=== PATIENT | male | born 1950 | race Caucasian/White ===

== ENCOUNTER 2016-04-09 08:00 | Outpatient (CLI) | payer MEDICARE, BC ==
--- NOTE | 2016-04-07 13:50 | HP ---
PATIENT: LEWIS SIMS MEDICAL RECORD: [id number] ACCOUNT: [id number] LOCATION:[facility] : 48 ADMISSION DATE: 04/10/16 HISTORY AND PHYSICAL EXAMINATION Patient NameLEWIS SIMS (65yo, M) ID# [id number]. Date/Time03/21/2016 09:[id number]//1950[facility] Dept.[facility] ClinicProviAtrium Health Navicent BaldwinDIEGO ESPARZA MDInsuranceMed Primary: [place] ([place]) Insurance # : [id number] Referring Provider Name : YOSELIN COFFEY Employer Name : UNKNOWN Med Secondary: [place] - [place] Insurance # : [id number] Referring Provider Name : YOSELIN COFFEY Employer Name : UNKNOWN Prescription: CMX - Member is eligible. Chief Complaint Followup: Abdominal aortic aneurysm without rupture referral from Dr Arnoldo Coffey (Trisha) for eval of AAA Patient's Care Team Referring Provider (): YOSELIN COFFEY: [address] [place] [address], [facility], [place] [id number], , Vitals BP:122/80 sitting R arm 03/21/2016 10:04 am 126/70 sitting L arm 03/21/2016 10:06 amHR:68,reg 03/21/2016 10:06 amHt:6 ft 1 in 03/21/2016 10:06 amWt:178 lbs 03/21/2016 10:06 amBMI:23.5 03/21/2016 10:06 amAllergies Reviewed Allergies NKDAMedications Reviewed Medications BD Insulin Syringe Ult-Fine II 1 mL 31 gauge x 5/16"12/19/15 filledCaremarkbuPROPion HCl SR 150 mg tablet,sustained-omljbuy42/08/16 filledCaremarkHumaLOG KwikPen 100 unit/mL yfphhvqdmzyt92/25/16 filledCaremarkJanumet 50 mg-1,000 mg tarmgd66/28/16 filledCaremarkLantus 100 unit/mL subcutaneous kijvwvmg68/21/16 filledCaremarklosartan 100 mg-hydrochlorothiazide 12.5 mg /02/17 filledCaremarkProblems Reviewed Problems Abdominal aortic aneurysm without rupture - Onset: 03/20/2016 Family History Discussed Family History Father- Malignant neoplastic diseaseMother- Malignant tumor of breast - Alzheimer's disease - Diabetes mellitusBrother- Diabetes mellitusSocial History Discussed Social History Cardiology Smoking Status: Former smoker (Notes: using "E-cigarettes") High blood pressure: Y Diabetes: Y Marital status: Surgical History Reviewed Surgical History Other - penile prosthesis HISTORY AND PHYSICAL [id number] BETHANYLEWIS Heart revascularize (tmr) Heart revascularize (tmr) Spinal disk surgery add-on Tonsillectomy Past Medical History Discussed Past Medical History Chest Pain: Y Circulation Problems: Y Diabetes: Y GERD: Y Heart Disease: Y High Blood Pressure: Y Documents for Discussion N/A Screening None recorded. HPI Peripheral Vascular Disease Reported by patient. Location: abdomen Severity: not limiting Associated Symptoms: no weakness; no numbness; no paresthesias; no skin discoloration; no fever complex abdominal aortic aneurysm and severe atherosclerosis ROS ROS as noted in the HPI Physical Exam Patient is a 65-year-old male. Constitutional: General Appearance healthy-appearing and thin. Level of Distress NAD. Ambulation ambulating normally. Cardiovascular: Apical Impulse not displaced or no thrill. Heart Auscultation normal s1 and s2; no murmurs, rubs, or gallops; and RRR. Arterial Pulses no abdominal aorta bruits, femor al bruits, or popliteal bruits and 2+ bilateral, carotid 2+ bilateral, femoral 2+ bilateral, popliteal 2+ bilateral, and dorsalis pedis 2+ bilateral. Edema no edema or varicosities. Lungs: Repiratory Effort no dyspnea. Percussion no hyperresonance or dull ness or flatness. Auscultation no wheezing, rhonchi, or rales / crackles and breathing sounds normal, good air movement, and CTA except as noted. Abdomen: Bowl Sounds normal. Inspection and Palpation no tenderness, guarding, masses, or rebound tenderness and soft and non-distended; palpable abdominal aortic aneurysm Nontender. Liver non-tender and no hepatomegaly. Spleen non-tender and no splenomegaly. Hernia none palpable. Musculoskeletal System: Gait And Stance normal gait and stance. Digits and Nails normal nails and no cyanosis. Neurologic: Cranial Nerves grossly intact. Reflexes DTRs 2+ bilaterally throughout. Sensation grossly intact. Lymph Nodes: Lymph Nodes no cervical LAD, supraclavicular LAD, axillary LAD, or HISTORY AND PHYSICAL [id number] LEWIS SIMS inguinal LAD. Eyes: Lids and Conjunctivae no discharge or pallor and non-injected. Pupils PERRLA. Cornea grossly intact. EOM EOMI. Lens clear. Sclerae non-icteric. Neck: Neck no masses, enlarged lymph nodes, or carotid bruits and supple and trachea midline. Thyroid no enlargement or nodules and non-tender. Skin: Inspection and Palpation no rash, lesions, ulcers, jaundice, or abnormal nevi. 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 Abdominal aortic aneurysm without rupture I71.4: Abdominal aortic aneurysm, without rupture ABDOMINAL AORTIC ANEURYSM: CARE INSTRUCTIONS Discussion Notes enlarging abdominal aortic aneurysm with aortic dissection. I think that he would benefit from endovascular stent repair as well as repair of his iliac arteries bilaterally. I have discussed his disease process with him in detail as well as the alternative methods of treatment. We discussed endovascular stent repair and open aneurysm repair including t he expected benefits and risk which included bleeding, infection, stroke, and . He understands all of the above and wished to proceed with planned procedure We will send his CD to Sanghvi for measurements Return to Office to see Jose Miguel Esparza MD at [facility] on or around 03/28/2016 JOSE MIGUEL ESPARZA MD at 1350 CC: [id number] DICTATION DATE: 03/21/16 0945 OFFICE ADMINISTRATOR: DM 04/05/16 0952 PRE IN [facility] [address] [place] [address]
[2016-04-09] MEDS ORDERED: JANUMET 50-1,001 TAB PO (09:57)
[2016-04-09] MEDS ORDERED: NIACIN500 MG PO (09:58)
[2016-04-09] MEDS ORDERED: WELLBUTRIN SR150 MG PO (09:58)
[2016-04-09] MEDS ORDERED: HYZAAR 100-12.51 TAB PO (09:59)
[2016-04-09] MEDS ORDERED: ASPIRIN EC81 M1 PO (09:59)
[2016-04-09] MEDS ORDERED: MULTI-DAY VITAM1 TAB PO (10:00)
[2016-04-09] MEDS ORDERED: FERROUS SULFAT325 MG PO (10:00)
[2016-04-09] MEDS ORDERED: HUMULIN N100 U/ML SC (10:01)
[2016-04-09 12:00] VITALS: BMI 22.2
[2016-04-09] MEDS ORDERED: PLAVIX75 MG PO (13:43)
== END 2016-04-09 23:59 | disposition home or self-care (01) ==
LOC: D.PAN 08:00 → EDSTATUS 04-10 07:30 → D.SDCHOLD 04-10 07:30
DX: I71.4 Abdominal aortic aneurysm, without rupture (principal); Z01.810 Encounter for preprocedural cardiovascular examination; Z01.811 Encounter for preprocedural respiratory examination; Z01.812 Encounter for preprocedural laboratory examination; Z53.9 Procedure and treatment not carried out, unspecified reason

== ENCOUNTER 2016-04-09 11:13 | Outpatient (CLI) | payer MEDICARE, BC ==
[~2016-04-09] VITALS: Ht 185.4 cm; Wt 76.4 kg
--- NOTE | ~2016-04-09 | HEMODYNAMI ---
PATIENT:LEWIS SIMS MEDICAL RECORD: [id number] : 48 LOCATION:[facility] ADMISSION DATE: 04/09/16 Generatedon:04/09/201613:11 Patient name: LEWIS SIMS Patient #: [id number] SSN: : 1950 Date of study: 04/09/2016 Page: Of Hemodynamic Procedure Report Patient Data Patient Demographics Procedure consent was obtained First Name: LEWIS Gender: Male Last Name: BETHANY : 1950 [facility] Initial: MANDI Age: 65 year(s) Patient #: [id number] Race: Unknown Additional ID: [id number] Contact details [address]: [address] [place] [address] DRIVE State: [place] City: [place] Zip code: [address] Admission Admission Data Admission Date: 04/09/2016 Admission Time: 11:13 Admit Source: Other Lab Results Lab Result Date: 04/09/2016 Lab Result Time: 11:50 Biochemistry Name Units Result Min Max Creatinine mg/dl 0.8 --(-*--)-- 0.6 1.3 CBC Name Units Result Min Max Hemoglobin g/dl 14.4 --(*---)-- 13.5 17.5 Procedure Procedure Types Cath Procedure Diagnostic Procedure [facility] w/Coronaries PCI Procedure Coronary Stent Initial Procedure Description Procedure Date Procedure Date: 04/09/2016 Procedure Start Time: 12:52 Procedure End Time: 13:09 Procedure Staff Name Function Seth Wright MD Performing Physician Ludy Brunner RN Nurse Jimmie Barrera RT Monitor Rajiv Crane RT Surface Logging Systems Logger Tomas Sim RT Scrub Procedure Data Cath Procedure Fluoroscopy Diagnostic fluoroscopy Total fluoroscopy Time: 4.3 time: 4.3 min min Diagnostic fluoroscopy Total fluoroscopy dose: 541 dose: 541 mGy mGy Contrast Material Contrast Material Type Amount (ml) Isovue 300 112 Entry Location Entry Primary Successful Side Size Upsize Upsize Entry Closure Lucero ccessful Closure Location (Fr) 1 (Fr) 2 (Fr) Remarks Device Remarks Radial Right 6 Fr Mechanical artery Short Compression Estimated blood loss: 10 ml Diagnostic catheters Device Type Used For End Catheter Placement Terumo 5Fr [place] 110cm Procedure catheter Procedure Complications No complications Procedure Medications Medication Administration Route Dosage Oxygen NC 2 l/min Lidocaine 2% added to field 20 Heparin Flush Bag added to field 2 bags (1000units/500ml NS) 0.9% NaCl I.V. 100 ml/hr Versed I.V. 1 mg Fentanyl I.V. 50 mcg Versed I.V. 1 mg Fentanyl I.V. 50 mcg Versed I.V. 1 mg Radial Cocktail I.A. 1 syringe (Verapomil 2mg/Nitro 400mcg/Heparin 1500units) Heparin Bolus I.V. 4000 units Integrilin (Bolus I.V. 6.8 ml 2mg/ml) Plavix P.O. 600 mg Hemodynamics Rest HGB: 14.4 (g/dl) Heart Rate: 25 (bpm) Snapshots Pre Cath Intra NCS Post Cath Vital Signs Time Heart Resp SPO2 etCO2 SB3cesx NIBP (mmHg) Rhythm Pain Sedation Rate (ipm) (%) (mmHg) (mmHg) Status Level (bpm) 12:41:46 69 17 96 0 0 144/88(126) NSR 0 (11) 10(A) , No pain 12:46:00 71 18 96 0 0 118/82(99) NSR 0 (11) 10(A) , No pain 12:50:03 66 16 96 0 0 134/87(111) NSR 0 (11) 9(A) , No pain 12:54:13 66 17 97 0 0 128/83(105) NSR 0 (11) 9(A) , No pain 12:58:23 84 16 94 0 0 115/76(92) NSR 0 (11) 9(A) , No pain 13:02:29 79 18 94 0 0 120/76(114) NSR 0 (11) 9(A) , No pain 13:06:37 65 17 96 0 0 140/82(126) NSR 0 (11) 10(A) , No pain Medications Time Medication Route Dose Verified Delivered Reason Note s Effectiveness by by 12:41:36 Oxygen NC 2 l/min Seth Boston used for Adriana Brunner [employer] 12:41:42 Lidocaine 2% added 20ml Seth Ann for local to vial Adriana Wright MD anesthetic field 12:41:50 Heparin Flush added 2 bags Seth Ann used for Bag to Adriana Wright MD procedure (1000units/500ml field NS) 12:41:58 0.9% NaCl I.V. 100 Seth Boston Per physician ml/hr Adriana Brunner RN 12:42:06 Versed I.V. 1 mg Seth Boston for sedation Adriana Brunner RN 12:42:11 Fentanyl I.V. 50 mcg Seth Pruittie for sedation Adriana Brunner RN 12:49:49 Versed I.V. 1 mg Seth Pruittie for sedation Adriana Brunner RN 12:49:52 Fentanyl I.V. 50 mcg Seth Boston for sedation Adriana Brunner RN 12:54:57 Versed I.V. 1 mg Seth Pruittie for sedation Adriana Brunner RN 12:56:47 Radial Cocktail I.A. 1 Seth Ann for (Verapomil syringe Adriana Wright MD vasodilation 2mg/Nitro 400mcg/Heparin 1500units) 13:00:52 Heparin Bolus I.V. 4000 Seth Boston for veri fied units Adriana Brunner RN anticoagulation with dr wright 13:02:55 Integrilin I.V. 6.8 ml Seth Boston for (Bolus 2mg/ml) Adriana Brunner RN antiplatelet therapy 13:09:21 Plavix P.O. 600 mg Seth Boston for Adriana Brunner RN antiplatelet therapy Procedure Log Time Note 12:29:07 Rajiv Crane RT(R) sent for patient. Start room use. 12:29:07 Time tracking: Regular hours 12:29:11 Plan of Care:Hemodynamics will remain stable., Cardiac rhythm will remain stable., Comfort level will be maintained., Respiratory function will remain adequate., Patient/ family verbilizes understanding of procedure., Procedure tolerated without complication., Recovers from procedure without complications.. 12:29:16 Admit Source: Other 12:29:18 Diagnostic Cath status Elective 12:32:01 Patient received from Post Procedure Room to [facility] 1 Alert and oriented. Tansferred to table in Supine position. 12:32:05 Warm blankets applied, and patti hugger turned on for patient comfort. 12:32:05 Correct patient and procedure confirmed by team. 12:32:07 Signed procedure consent form obtained from patient. 12:32:08 ECG and BP/O2 sat monitors applied to patient. 12:36:50 H&P Date Dictated: 04/09/2016 Within 30 days and on chart., H&P Addendum completed by physician on day of procedure. (MUST COMPLETE FOR ALL OUTPATIENTS). 12:36:51 Pre-procedure instructions explained to patient. 12:36:51 Pre-op teaching completed and patient verbalized understanding. 12:36:53 Family in waiting room. 12:36:55 Patient NPO since Midnight. 12:36:57 Is the patient allergic to Iodine/contrast media? No. 12:37:02 Is patient on blood thinner?No 12:37:06 ACC The patient was administered the following blood thiners within the last 24 hours: None 12:37:09 Patient diabetic? Yes. 12:37:11 If diabetic: On Metformin? No 12:37:15 Previous problem with sedation/anesthesia? No ? 12:37:17 Snore? Yes 12:37:18 Sleep apnea? No 12:37:19 Deviated septum? No 12:37:20 Opens mouth fully? Yes 12:37:21 Sticks out tongue? Yes 12:37:23 Airway obstruction? No ? 12:37:27 Dentures? Yes IN 12:37:31 Pre procedure: right dorsailis pedis pulse 1+ Palpable, but thready & weak; easily obliterated 12:37:36 Modified Mele's test Ulnar < 7 seconds 12:37:38 Patient pain scale 0/10 ?. 12:37:43 IV patent on arrival in left forearm with 0.9% NaCl at KVO. 12:37:44 Lab results completed and on chart. 12:37:48 Right Radial & Right Groin area was prepped with chlora-prep and draped in sterile fashion 12:37:49 Alarms reviewed by R. N. 12:37:50 Sharps counted by scrub and verified by R.N. 12:40:34 Vital chart was started 12:40:36 Baseline sample Acquired. 12:40:42 Rhythm: sinus rhythm 12:40:45 Full Disclosure recording started 12:40:47 --------ALL STOP TIME OUT------ 12:40:48 Final Timeout: patient, procedure, and site verified with staff and physician. All members of the team are in agreement. 12:40:50 Right Radial & Right Groin site verified by team. 12:40:54 Physical assessment completed. ASA score P 2 - A patient with mild systemic disease as per Seht Wright MD. 12:40:57 Sedation plan: IV Moderate Sedation Versed, Fentanyl 12:41:36 Oxygen 2 l/min NC was given by Ludy Brunner RN; used for procedure; 12:41:42 Lidocaine 2% 20ml vial added to field was given by Seth Wright MD; for local anesthetic; 12:41:50 Heparin Flush Bag (1000units/500ml NS) 2 bags added to field was given by Seth Wright MD; used for procedure; 12:41:58 0.9% NaCl 100 ml/hr I.V. was given by Ludy Brunner RN; Per physician; 12:42:06 Versed 1 mg I.V. was given by Ludy Brunner RN; for sedation; 12:42:11 Fentanyl 50 mcg I.V. was given by Ludy Brunner RN; for sedation; 12:48:46 Lab Result : Creatinine 0.8 mg/dl 12:48:46 Lab Result : Hemoglobin 14.4 g/dl 12:49:49 Versed 1 mg I.V. was given by Ludy Brunner RN; for sedation; 12:49:52 Fentanyl 50 mcg I.V. was given by Ludy Brunner RN; for sedation; 12:51:40 Use device set Radial Dx 12:51:41 Tegaderm 4 x 4 opened to sterile field. 12:51:42 Acist Manifold opened to sterile field. 12:51:42 Acist Hand Control opened to sterile field. 12:51:44 Acist Syringe opened to sterile field. 12:51:44 Cardinal Cath Pack opened to sterile field. 12:51:45 Bag Decanter opened to sterile field. 12:51:45 Terumo 6Fr Slender Glidesheath opened to sterile field. 12:51:46 St Carl 260cm J .035 wire opened to sterile field. 12:52:17 Procedure started. 12:52:25 Local anesthetic to right radial artery with Lidocaine 2% by Seth Wright MD.INITIAL ACCESS ONLY 12:52:31 Zero performed for pressure channel P1 12:52:36 Zero performed for pressure channel P1 12:54:57 Versed 1 mg I.V. was given by Ludy Brunner RN; for sedation; 12:55:46 A 6 Fr Short sheath was inserted into the Right Radial artery 12:56:47 Radial Cocktail (Verapomil 2mg/Nitro 400mcg/Heparin 1500units) 1 syringe I.A. was given by Seth Wright MD; for vasodilation; 12:57:12 A Etopus 5Fr [place] 110cm catheter was advanced over the wire and used for Procedure. 12:57:32 LV gram done using MCKEON 12:57:43 EF : 60 % 12:57:46 Injector settings: Ml/sec: 5, Volume: 15, 12:57:54 LCA angiography performed. 12:58:36 RCA angiography performed. 12:59:27 Medtronic Launcher 6Fr AR 2.0 SH guide catheter opened to sterile field. 12:59:27 [facility] [employer] J 300cm 0.014 guide wire opened to sterile field. 12:59:28 Timescape BasixCompak Inflation Kit opened to sterile field. 12:59:34 Proceeding to intervention. 12:59:35 Catheter removed. 13:00:52 Heparin Bolus 4000 units I.V. was given by Ludy Brunner RN; for anticoagulation; verified with dr wright 13:01:16 [facility] 13:01:18 ACC Pre-intervention ANICETO Flow is 2. 13:01:28 6 Fr AR 2 SH guide catheter was inserted over the wire 13:01:37 whisper wire advanced. 13:02:55 Integrilin (Bolus 2mg/ml) 6.8 ml I.V. was given by Ludy Brunner RN; for antiplatelet therapy; 13:04:14 Wire advanced across lesion. 13:04:17 Inflation Number: 1 A Medtronic Integrity 3.5 X 26 stent was prepped and advanced across the Mid RCA. The stent was deployed at 17 PUNEET for 0:10 (min:sec). 13:04:44 Inflation number: 2 The stent balloon was then re-inflated across the Mid RCA to 17 PUNEET for 0:10 (min:sec). 13:05:23 Inflation number: 3 The stent balloon was then re-inflated across the Mid RCA to 19 PUNEET for 0:10 (min:sec). 13:05:57 ACC Post-intervention ANICETO Flow is 3. 13:05:57 Stent catheter was removed intact over wire. 13:05:58 Wire removed. 13:05:58 Guide catheter removed. 13:06:05 Terumo TR Band Standard opened to sterile field. 13:06:26 Sheath removed intact; hemostasis achieved with Mechanical Compression to the Right Radial artery. 13:06:29 Procedure ended.(Physican Out) 13:06:41 Fluoroscopy time 04.30 minutes. 13:06:48 Fluoroscopy dose: 541 mGy 13:06:48 Flurop Dose total: 541 13:07:11 Contrast amount:Isovue 300 112ml. 13:07:13 Sharps counted by scrub and verified by R.N. 13:07:23 TR band inflated with 12cc of air. 13:07:29 Insertion/operative site no bleeding no hematoma. 13:07:54 Post Procedure Pulses reassessed and unchanged 13:07:56 Post-procedure physical assessment completed. ASA score P 2 - A patient with mild systemic disease as per Seth Wright MD. 13:07:59 Post procedure rhythm: unchanged. 13:08:01 Estimated blood loss: 10 ml 13:08:03 Post procedure instruction explained to patient.Patient verbalizes understanding. 13:08:04 Patient needs reinforcement of post procedure teaching. 13:08:10 Procedure type changed to Cath procedure, Diagnostic procedure, LHC, LHC w/Coronaries, PCI procedure, Coronary Stent Initial 13:09:21 Plavix 600 mg P.O. was given by Ludy Brunner RN; for antiplatelet therapy; 13:09:35 Procedure and supply charges have been captured, reviewed, submitted and are correct. 13:09:37 Procedure Complication : No complications 13:09:40 Vital chart was stopped 13:09:41 See physician's report for complete and final results. 13:09:42 Report given to Post Procedure Room. 13:09:46 Patient transfered to Post Procedure Room with Stretcher. 13:09:48 Procedure ended. 13:09:48 Full Disclosure recording stopped 13:09:58 ACC-PCI Only Patient was given prescriptions, or instructed by Seth Wright MD to start/continue the following medications upon discharge: Plavix 13:10:23 End room use (Document Last) Intervention Summary Intervention Notes Time ActionType Lesion and Equipment Action# Pressure Duration Attributes Used 13:04:17 Place stent Mid RCA Medtronic 1 17 00:10 Integrity 3.5 X 26 stent 13:04:44 Reinflate Mid RCA Medtronic 2 17 00:10 stent Integrity balloon 3.5 X 26 stent 13:05:23 Reinflate Mid RCA Medtronic 3 19 00:10 stent Integrity balloon 3.5 X 26 stent Device Usage Item Name Manufacture Quantity Catalog Hospital Part Current Minimal Lot# / Number Charge Number Stock Stock Serial# Code Tegaderm 4 3M 1 [id number] 5 x 4 Acist Acist 1 14146 795041 452169 [id number] 5 Manifold Suda Systems [facility] Acist Hand Acist 1 97127 923623 425665 510382 5 Nivela Systems [facility] Acist Acist 1 21350 338303 501431 851633 20 Syringe Medical Systems Inc Cardinal Cardinal 1 [id number] 185404 83505 146069 5 Cath Pack Health Bag Microtek 1 2002S 109901 45593 444894 5 [employer] Inc. Terumo 6Fr Terumo 1 [id number] 467946 124815 374424 [address] [facility] Carl 1 881527 672731 375801 248331 30 260cm J .035 wire Terumo 5Fr Terumo 1 40-7364 304838 101238 998971 5 [place] 110cm catheter Medtronic Medtronic 1 [id number] 653204 39263 077576 1 Launcher 6Fr [place] 2.0 SH guide catheter Fuchs Fuchs 1 [id number] 254239 892292 930100 5 Whisper J Vascular 300cm 0.014 guide wire Merit Merit 1 [id number] 494929 664768 799765 15 Cardio control Medical Inflation Kit Medtronic Medtronic 1 [id number] 289302 468313 171518 7 [id number] Integrity 3.5 X 26 stent Terumo TR Terumo 1 [id number] 700739 647152 599670 40 Band Standard Signature Audit [place] Stage Time Signature Unsigned Intra-Procedure 04/09/2016 Tomas Sim 1:11:45 PM RT(R) Signatures Monitor : Jimmie Barrera RT Signature : Date : Time : [facility] [address] [place] [address]
--- NOTE | ~2016-04-09 | HEMODYNAMI ---
PATIENT:LEWIS SIMS MEDICAL RECORD: [id number] : 48 LOCATION:[facility] ADMISSION DATE: 04/09/16 Generatedon:04/12/201610:54 Patient name: LEWIS SIMS Patient #: [id number] SSN: : 1950 Date of study: 04/09/2016 Page: Of Hemodynamic Procedure Report Patient Data Patient Demographics First Name: LEWIS Gender: Male Last Name: BETHANY : 1950 [facility] Initial: MANDI Age: 65 year(s) Patient #: [id number] Race: Unknown Additional ID: [id number] Contact details [address]: [address] [place] [address] DRIVE State: [place] City: [place] Zip code: [address] Admission Admission Data Admission Date: 04/09/2016 Admission Time: 11:13 Admit Source: Other Lab Results Lab Result Date: 04/09/2016 Lab Result Time: 11:50 Biochemistry Name Units Result Min Max Creatinine mg/dl 0.8 --(-*--)-- 0.6 1.3 CBC Name Units Result Min Max Hemoglobin g/dl 14.4 --(*---)-- 13.5 17.5 Procedure Procedure Types Cath Procedure Diagnostic Procedure [facility] Procedure Description Procedure Date Procedure Date: 04/09/2016 Procedure Start Time: 13:17 Procedure End Time: 13:35 Procedure Staff Name Function Rita Marie RT Monitor Jimmie Barrera RT Scrub Ludy Brunner RN Nurse Seth Wright MD Performing Physician Tomas Sim RT Monitor Procedure Data Cath Procedure Fluoroscopy Diagnostic fluoroscopy Total fluoroscopy Time: 1 time: 1 min min Diagnostic fluoroscopy Total fluoroscopy dose: 390 dose: 390 mGy mGy Contrast Material Contrast Material Type Amount (ml) Isovue 300 33 Entry Location Entry Primary Successful Side Size Upsize Upsize Entry Closure Succes sful Closure Location (Fr) 1 (Fr) 2 (Fr) Remarks Device Remarks Femoral Right 5 Fr Vascade artery Closure System Estimated blood loss: 5 ml Diagnostic catheters Device Type Used For End Catheter Placement Cordis Infinity 5Fr AR 2 Right Coronary MOD catheter Angiography Cordis Infinity 5Fr 3DRC Procedure catheter Procedure Complications No complications Procedure Medications Medication Administration Route Dosage Integrilin (Bolus I.V. 6.8 ml 2mg/ml) Dextrose 50% I.V. 12.5 g Hemodynamics Rest HGB: 14.4 (g/dl) Pre Cath Intra NCS Post Cath Vital Signs Time Heart Resp SPO2 NIBP (mmHg) Rhythm Pain Sedation Rate (ipm) (%) Status Level (bpm) 13:21:36 58 19 97 160/88(135) NSR 0 (11) 10(A) , No pain 13:25:52 60 16 98 164/100(140) NSR 0 (11) 10(A) , No pain 13:30:10 65 15 98 166/95(130) NSR 0 (11) 10(A) , No pain 13:34:30 58 9 96 152/92(128) NSR 0 (11) 10(A) , No pain Medications Time Medication Route Dose Verified Delivered Reason Notes Effecti veness by by 13:16:30 Integrilin I.V. 6.8 Seth Boston for (Bolus ml Adriana Brunner RN antiplatelet 2mg/ml) therapy 13:31:41 Dextrose I.V. 12.5 Seth Boston Per 50% g Adriana Brunner RN physician Procedure Log Time Note 13:14:[address] Elevation. Still on table from Previuos procedure. 13:15:35 Final Timeout: patient, procedure, and site verified with staff and physician. All members of the team are in agreement. 13:15:40 Right groin site verified by team. 13:15:44 Physical assessment completed. ASA score P 3 - A patient with severe systemic disease as per Seth Wright MD. 13:15:47 Sedation plan: IV Moderate Sedation Versed, Fentanyl 13:16:09 Use device set Femoral PCI 13:16:10 Acist Syringe opened to sterile field. 13:16:11 Bag Decanter opened to sterile field. 13:16:11 Acist Hand Control opened to sterile field. 13:16:12 Cardinal Cath Pack opened to sterile field. 13:16:13 St Carl 260cm J .035 wire opened to sterile field. 13:16:14 Acist Manifold opened to sterile field. 13:16:15 Tegaderm 4 x 4 opened to sterile field. 13:16:20 Full Disclosure recording started 13:16:20 Procedure started. 13:16:30 Integrilin (Bolus 2mg/ml) 6.8 ml I.V. was given by Ludy Brunner RN; for antiplatelet therapy; 13:17:24 Local anesthetic to right femoral artery with Lidocaine 2% by Seth Wright MD.INITIAL ACCESS ONLY 13:18:32 A 5 Fr sheath was inserted into the Right Femoral artery 13:20:17 Terumo ANGLE 260L glide wire opened to sterile field. 13:20:17 A Cordis Infinity 5Fr 3DRC catheter was advanced over the wire and used for Procedure. 13:20:19 GLIDE wire advanced. 13:20:20 Catheter exchanged over wire. 13:20:22 Vital chart was started 13:20:45 Use device set Multipack Set 13:21:36 A Cordis Infinity 5Fr AR 2 MOD catheter was advanced over the wire and used for Right Coronary Angiography. 13:23:13 Catheter exchanged over wire. 13:23:36 Sheath removed intact; hemostasis achieved with Vascade Closure System to the Right Femoral artery. 13:23:39 Procedure ended.(Physican Out) 13:23:45 Fluoroscopy time 01.00 minutes. 13:23:48 Fluoroscopy dose: 390 mGy 13:23:48 Flurop Dose total: 390 13:24:02 Contrast amount:Isovue 300 33ml. 13:24:04 Sharps counted by scrub and verified by R.N. 13:24:05 Insertion/operative site no bleeding no hematoma. 13:24:12 Post right femoral artery:stable, clean and dry 13:24:14 Post Procedure Pulses reassessed and unchanged 13:24:18 Post-procedure physical assessment completed. ASA score P 2 - A patient with mild systemic disease as per Seth Wright MD. 13:24:22 Post procedure rhythm: sinus rhythm 13:24:29 Estimated blood loss: 5 ml 13:24:30 Patient needs reinforcement of post procedure teaching. 13:24:30 Post procedure instruction explained to patient.Patient verbalizes understanding. 13:24:36 Procedure type changed to Cath procedure, Diagnostic procedure, LHC, Coronaries only, PCI procedure 13:24:43 Procedure Complication : No complications 13:25:07 See physician's report for complete and final results. 13:27:32 Vascade 5Fr Closure Device opened to sterile field. 13:28:22 Terumo 5Fr Peralta Sheath opened to sterile field. 13:31:41 Dextrose 50% 12.5 g I.V. was given by Ludy Brunner RN; Per physician; 13:33:07 Procedure and supply charges have been captured, reviewed, submitted and are correct. 13:35:29 Vital chart was stopped 13:35:33 Report given to Post Procedure Room. 13:35:36 Patient transfered to Post Procedure Room with Stretcher. 13:35:45 Full Disclosure recording stopped 13:35:45 Procedure ended. 13:35:52 End room use (Document Last) Device Usage Item Manufacture Quantity Catalog Number Hospital Part Current Minimal Lot# / Name Charge Number Stock Stock Serial# Code Acist Acist 1 44772 [id number] 505552 [id number] 20 Syringe Medical Systems Inc Acist Acist 1 75350 058328 433698 855344 5 Hand Medical Control Systems Inc Bag Microtek 1 2002S 805868 18727 351474 5 Decanter Medical Inc. Cardinal Cardinal [address] 993165 82555 310676 [address] Carl 1 076495 151306 573557 592890 30 260cm J .035 wire Acist Acist 1 40427 947271 492686 704093 5 Manifold Medical Systems Inc Tegaderm 3M 1 1626W 676210 059160 672450 5 4 x 4 Cordis Cardinal 1 [id number] 539463 627576 960383 20 Coherex Medical Health 5Fr AR 2 MOD catheter Vascade Cardiva 1 436-902IR-05N 054867 01238 964514 10 5Fr Medical, Closure Inc. Device Terumo Terumo 1 KPH161 397853 143802 987681 40 5Fr Peralta Sheath Terumo Terumo 1 ES9719 348888 056467 5 ANGLE 260L glide wire Cordis Cardinal 1 [id number] 351517 803892 411698 9 Alseres Pharm[employer] 5Fr 3DRC catheter Signature Audit [place] Stage Time Signature Unsigned Intra-Procedure 04/09/2016 Rita Salinas Counts 1:36:04 PM Counts RT(R) RT(R) 04/12/2016 10:53:57 AM Intra-Procedure 04/12/2016 Rita 10:54:41 AM Counts RT(R) Signatures Monitor : Rita Signature : Counts RT Date : Time : Monitor : Tomas Sim RT Signature : Date : Time : [address] [place] [address]
[~2016-04-09 11:13] MED LIST: ASPIRIN EC81 M1 PO; FERROUS SULFAT325 MG PO; HUMULIN N100 U/ML SC; HYZAAR 100-12.51 TAB PO; JANUMET 50-1,001 TAB PO; MULTI-DAY VITAM1 TAB PO; NIACIN500 MG PO; WELLBUTRIN SR150 MG PO
[2016-04-09 11:58] LABS: BASOPHILS 0.3 % (0.0-2.0); EOSINOPHILS 2.1 % (0-7); HEMATOCRIT 43.6 % (42.0-54.0); HEMOGLOBIN 14.4 g/dL (13.5-17.5); IMMATURE GRANULOCYTES 0.2 % (0-5); LYMPHOCYTES 24.7 % (15-50); MCH 28.6 pg (26.0-34.0); MCV 86.5 fL (80.0-100.0); MEAN PLATELET VOLUME 9.6 fL (7.4-10.4); MONOCYTES 9.2 % (2-11); NEUTROPHILS 63.5 % (40-80); PLATELET COUNT 218 10x3/uL (130-400); RBC 5.04 10x6/uL (4.20-6.10); RDW 15.3 % (11.5-14.5); WBC 10.4 10x3/uL (4.8-10.8)
[2016-04-09 12:00] VITALS: BP 147/76; Ht 185.4 cm; Wt 76.4 kg
[2016-04-09 12:16] LABS: CALC OSMOLALITY 274 mosm/kg (275-300); CALCIUM 9.1 mg/dL (8.5-10.1); CARBON DIOXIDE 28.6 mmol/L (21.0-32.0); CHLORIDE - SERUM 101 mmol/L (98-107); CREATININE - SERUM 0.8 mg/dL (0.6-1.3); GLUCOSE 141 mg/dL (74-106); POTASSIUM - SERUM 4.1 mmol/L (3.5-5.1); SODIUM 137 mmol/L (136-145); UREA NITROGEN 9 mg/dL (7-18); eGFR NON AFRICAN AMERICAN > 90 mL/min (90-120)
[2016-04-09] MEDS ORDERED: PLAVIX75 MG PO (13:43)
--- NOTE | 2016-04-09 14:26 | NUR ---
1415- WRIST AND GROIN WITH NO CHANGES, C/O NAUSEA- ZOFRAN 4MG GIVEN SIVP, SLIGHTLY DIAPHORETIC- COVERS OFF PATIENT, AT SIDE
--- NOTE | 2016-04-09 14:46 | NUR ---
1445-V/S STABLE, NO CHANGES IN GROIN OR WRIST.
--- NOTE | 2016-04-09 17:59 | NUR ---
1700- SMALL AMOUNT OOZING AT TR BAND SITE- BAND AID APPLIED AND TR BAND WITH 2CC AIR LEFT ON- INSTRUCTED TO REMOVE AT 2100. BOTH AND PT SHOWED VERBAL UNDERSTANDING OF THESE INSTRUCTIONS
--- NOTE | 2016-04-12 13:59 | OP ---
PATIENT NAME: LEWIS SIMS MEDICAL RECORD: [id number] :48 LOCATION:D.CAT ADMISSION DATE: SURGEON: MICAH GLASGOW MD DATE OF OPERATION: 04/09/2016 PROCEDURE: Selective coronary angiography. INDICATION: ST segment elevation after PTCA stent. Mr. Sims had PTCA stent. After we pulled the sheath, he had a new ST elevation and an episode of AIVR. The femoral area was prepped and draped in normal sterile fashion. Femoral artery was recannulated via modified Seldinger technique with placement of 6-Eritrean sheath. FINDINGS: The right coronary is widely patent. There is no thrombosis, distal runoff is ANICETO 3 flow. At the time that we did the angiography, ST elevation had resolved. He had no further dysrhythmia. OVERALL IMPRESSION: Wide patency of the previously placed stent in the right coronary artery. TRANSINT:[id number] Voice Confirmation ID: [id number] DOCUMENT ID: [id number] MICAH GLASGOW MD at 1359 CC: [id number] DICTATION DATE: 04/11/[address] SCIENTIST: 04/11/16 1028 DEP CLI 04/09/16 [facility] [address] [place] [address]
--- NOTE | 2016-04-12 13:59 | CN ---
PATIENT NAME:LEWIS SIMS MEDICAL RECORD: [id number] : 48 LOCATION:D.CAT ADMIT DATE: ACCOUNT: [id number] CONSULTING PHYSICIAN: MICAH GLASGOW MD REFERRING PHYSICIAN: MICAH GLASGOW MD DATE OF CONSULTATION: 04/09/2016 Cardiology Consultation DIAGNOSES: 1. Angina. 2. Abnormal electrocardiogram. 3. Preoperative evaluation. 4. Peripheral vascular disease. 5. Abdominal aortic aneurysm. 6. Hypertension. 7. Hyperlipidemia. 8. Previous percutaneous transluminal coronary angioplasty stent. HISTORY OF PRESENT ILLNESS: This is a gentleman who presents for preoperative evaluation for abdominal aortic aneurysm surgery, found to have an abnormal ECG with frequent PVCs. He had a history of coronary artery disease with PTCA stent in a number of years ago in [place] and has not seen a admissions director for years. He has been having some episodes of chest pressure that is very similar to the symptomatology he had prior to the stenting. PHYSICAL EXAMINATION: GENERAL APPEARANCE: Well-nourished, well-developed, appears stated age. Level of distress, comfortable. PSYCHIATRIC: Mental status, alert, normal affect. Orientation, oriented to time, place and person. EYES: Lids and conjunctiva, noninjected. No discharge, no pallor. ENT: Lips, teeth, gums, normal dentition. Oropharynx, no cyanosis, no pallor. NECK: Carotid arteries, bilateral normal upstroke, no bruits, no thrills. JUGULAR VEINS: No jugular venous pressure or distention. CERVICAL LYMPH NODES: Nontender, nonenlarged. THYROID: Not enlarged. Nontender. No nodules. LUNGS: Respiratory effort, unlabored. CHEST: Normal curvature. No thoracic deformity. No chest wall tenderness. Percussion, resonant. Auscultation, clear. No wheezes, no rales, no rhonchi. CARDIOVASCULAR: Precordial exam, nondisplaced. No heaves or pericardial thrills. Rate and rhythm, regular. Heart sounds, normal S1, normal S2. No S3, no gallop, no rub. Systolic murmur, not heard. Diastolic murmur, not heard. EXTREMITIES: No cyanosis, no edema. Peripheral pulses, full and equal in all extremities, except as noted. No bruits appreciated. ABDOMEN: Soft, nondistended. Normal aorta. No bruit. Nontender. No masses. Liver, nontender, no hepatomegaly. Spleen, nontender, no splenomegaly. MUSCULOSKELETAL: No joint tenderness. No joint swelling. No erythema. NEUROLOGICAL: Normal gait, normal strength, normal tone. SKIN: Warm and dry. REVIEW OF SYSTEMS: The patient reports easy bruising but reports no swollen glands. The patient reports no fever, no night sweats, no significant weight gain, no significant weight loss. No significant exercise tolerance. The patient reports no dry eyes, no irritation, no vision change. Patient reports CONSULT REPORT [id number] LEWIS SIMS no difficulty hearing and no ear pain. Patient reports no frequent nose bleeds or nose and sinus problems. Patient reports on arm pain on exertion. No shortness of breath while lying down. No history of heart murmur. Patient reports no cough, no wheezing or coughing up blood. Patient reports no abdominal pain, no vomiting. Normal appetite. No diarrhea and not vomiting blood. No nausea and no constipation. Patient reports no incontinence. No difficulty urinating. No hematuria. No increased frequency. Patient reports no muscle aches. No weakness, no arthralgias, no back pain. No swelling of the extremities. Patient reports no abnormal mole, no jaundice, no rashes. Reports no loss of consciousness. No weakness and no numbness. No seizures, dizziness, or headaches. The patient reports no depression, no sleep disturbance, feeling safe in a relationship and no alcohol abuse. Patient reports on fatigue. Reports no runny nose or sinus pressure. No itching, no hives, and no frequent sneezing. OVERALL IMPRESSION: Anginal symptomatology, abnormal ECG in a patient with a past history of coronary artery disease, most likely he has recurrent hemodynamically significant coronary artery disease. We will proceed with coronary angiography. Further care depends upon the findings of the angiography. TRANSINT:[id number] Voice Confirmation ID: [id number] DOCUMENT ID: [id number] MICAH GLASGOW MD at 1359 CC: [id number] DICTATION DATE: 04/09/16 1310 UNIT LEADER: 04/09/16 1331 DEP CLI 04/09/16 [place] [address]
--- NOTE | 2016-04-12 13:59 | OP ---
PATIENT NAME: LEWIS SIMS MEDICAL RECORD: [id number] :48 LOCATION:D.CAT ADMISSION DATE: SURGEON: MICAH GLASGOW MD DATE OF OPERATION: 04/09/2016 PROCEDURES: 1. PTCA stent RCA. 2. Left heart catheterization. 3. Selective coronary angiography. 4. Left ventriculogram. INDICATION: Angina, coronary artery disease, abnormal ECG, preoperative evaluation. PROCEDURE IN DETAIL: After informed consent was obtained and after detailed explanation of risks, benefits as well as alternative therapies, the patient elected to proceed with angiogram and angioplasty. The right radial area was prepped and draped in normal sterile fashion. The right radial artery was cannulated via modified Seldinger technique with placement of 6-Korean sheath. All catheters exchanged through this sheath. FINDINGS: Left ventriculogram was performed in standard 30-degree MCKEON view, reveals good cardiac wall motion throughout all segments. Overall ejection fraction is 60%. SELECTIVE CORONARY ANGIOGRAPHY: 1. Left main showed no significant angiographic disease. 2. Left anterior descending has moderate irregularities, but no flow-limiting stenosis. 3. The left circumflex has moderate irregularities, but no flow-limiting stenosis. 4. The right coronary has previously placed stents prior to the previously placed stents, there is 80% to 90% stenosis. PTCA STENT OF THE RIGHT CORONARY ARTERY: The stent used was 3.5 x 26 mm Integrity. Result was 0% residual stenosis. OVERALL IMPRESSION: Successful percutaneous transluminal coronary angioplasty stent of the right coronary artery going from 80% to 90% initial stenosis to 0% residual. TRANSINT:[id number] Voice Confirmation ID: [id number] DOCUMENT ID: [id number] MICAH GLASGOW MD at 1359 CC: ZHEN ESPARZA MD [id number] DICTATION DATE: 04/09/16 1309 EDGER RUNNER: 04/09/16 1357 DEP CLI 04/09/[address] [address]
== END 2016-04-09 17:20 | disposition home or self-care (01) ==
LOC: D.CATH 11:13
PROVIDERS: Internal Medicine Interventional Cardiology
DX: I25.119 Atherosclerotic heart disease of native coronary artery with unspecified angina pectoris (principal)

== ENCOUNTER 2016-05-08 05:15 | Inpatient (IN) | payer MEDICARE, BC ==
--- NOTE | 2016-05-05 10:49 | HP ---
PATIENT: LEWIS SIMS MEDICAL RECORD: [id number] ACCOUNT: [id number] LOCATION:[facility] : 48 ADMISSION DATE: 05/08/16 HISTORY AND PHYSICAL EXAMINATION LEWIS Saavedra (65yo, M) ID# [id number]. Date/Time05/03/2016 01:16FYYRL1949[facility] ClinicProviFlint River HospitalDIEGO ESPARZA MDInsuranceMed Primary: [place] ([place]) Insurance # : [id number] Referring Provider Name : YOSELIN COFFEY Employer Name : UNKNOWN Med Secondary: [place] - [place] Insurance # : [id number] Referring Provider Name : YOSELIN COFFEY Employer Name : UNKNOWN Prescription: CMX - Member is eligible. Chief Complaint AAA, abdominal aortic aneurysm, PVD - peripheral vascular disease AAA s/p CRISIS CLINICIAN/stent 04/09/16 2 week f/u Patient's Care Team Referring Provider (): YOSELIN COFFEY: [address], [place] [address], , Patient's Pharmacies [facility] ([facility]): [address] [place], [place] [address], , Vitals BP:114/68 sitting R arm 05/03/2016 02:38 pmHR:80, missed beat 05/03/2016 02:39 pmHt:6 ft 1 in 05/03/2016 02:25 pmWt:171 lbs 05/03/2016 02:37 pmNotes:checkup post coronary stent, ready to reschedule.05/03/2016 02:39 pmBMI:22.6 05/03/2016 02:37 pmAllergies Reviewed Allergies NKDAMedications Reviewed Medications Baby Aspirin 81 mg chewable tablet Chew 1 tablet(s) every day by oral route.03/21/16 enteredKathy WilsonBD Insulin Syringe Ult-Fine II 1 mL 31 gauge x 16"12/19/15 filledCaremarkbuPROPion HCl SR 150 mg tablet,sustained-release Take 1 tablet(s) twice a day by oral route for 30 days.03/26/16 filledCaremarkclopidogrel 75 mg trjuyt54/06/17 filledCaremarkfluticasone 50 mcg/actuation nasal spray,/28/17 filledCaremarkHumuLIN N 100 unit/mL subcutaneous suspension Inject 6 unit(s) every day by subcutaneous route.03/21/16 [facility] WilsonHYDROcodone 5 mg-acetaminophen 325 mg ievesz35/17/17 filledCaremarkiron 65 mg tablet Take 1 tablet(s) every day by oral route.03/21/16 [facility] WilsonJanumet 50 mg-1,000 mg tablet Take 1 tablet(s) twice a day by oral route for 90 days.01/30/16 filledCaremarklosartan 100 mg-hydrochlorothiazide 12.5 mg tablet Take 1 tablet(s) every day by oral route for 90 days.03/05/16 filledCaremarkmultivitamin tablet Take 1 tablet(s) every day by oral route.03/21/16 [facility] Wilsonniacin ER 500 mg capsule,extended release Take 1 capsule(s) twice a day by oral route.03/21/16 [facility] Wilsonniacin ER HISTORY AND PHYSICAL [id number] LEWIS SIMS 500 mg tablet,extended release 24 hr04/11/16 filledCaremarknitroglycerin 0.4 mg sublingual ickraw49/23/17 filledCaremarkOsmoPrep 1.5 gram (1.102-0.398) tablet Take 1 tablet(s) by oral route as directed.04/04/16 Tiffanie Juárez 3350 240 gram-electrolytes 22.72 gram-6.72 g-5.84 g powdr for soln04/06/16 filledCaremarkProblems Reviewed Problems Abdominal aortic aneurysm without rupture - Onset: 03/20/2016 Family History Discussed Family History Father- Malignant neoplastic diseaseMother- Malignant tumor of breast - Alzheimer's disease - Diabetes mellitusBrother- Diabetes mellitusSocial History Discussed Social History Cardiology Smoking Status: Former smoker (Notes: using "E-cigarettes") High blood pressure: Y Diabetes: Y Marital status: Surgical History Reviewed Surgical History Other - penile prosthesis Heart revascularize (tmr) Heart revascularize (tmr) Spinal disk surgery add-on Tonsillectomy Other - 04/09/2016 - PTCA stent Dr Wright Past Medical History Discussed Past Medical History Chest Pain: Y Cir culation Problems: Y Coronary Artery Disease: Y Diabetes: Y GERD: Y Heart Disease: Y High Blood Pressure: Y Documents for Discussion N/A Screening None recorded. HPI Peripheral Vascular Disease Reported by patient. Location: abdomen Severity: not limiting Associated Symptoms: no weakness; no numbness; no paresthesias; no skin discoloration; no fever complex abdominal aortic aneurysm and severe atherosclerosis ROS Patient reports no fever, no night sweats, no significant weight gain, no significant weight loss, and no exercise intolerance. He reports no dry eyes, no irritation, and no vision change. He reports no difficulty hearing and no ear pain. He reports no frequent nosebleeds and no nose/sinus problems. He reports no sore throat, no bleeding gums, no snoring, no dry mouth, no mouth ulcers, no oral HISTORY AND PHYSICAL [id number] BETHANY,LEWIS KINDALL abnormalities, and no teeth problems. He reports no jugular vein distension and no swollen glands. He reports no chest pain, no arm pain on exertion, no shortness of breath when walking, no shortness of leena t h when lying down, no palpitations, and no known heart murmur. He reports no cough, no wheezing, no shortness of breath, and no coughing up blood. He reports no abdominal pain, no vomiting, normal appetite, no diarrhea, not vomiting blood, no nausea, and n o constipation. He reports no incontinence, no difficulty urinating, no hematuria, and no increased frequency. He reports no muscle aches, no muscle weakness, no arthralgias/joint pain, no back pain, and no swelling in the extremities. He reports no abnor m al mole, no jaundice, and no rashes. He reports no loss of consciousness, no weakness, no numbness, no seizures, no dizziness, and no headaches. He reports no depression, no sleep disturbances, feeling safe in relationship, and no alcohol abuse. He report s no fatigue. He reports no swollen glands and no bruising. He reports no runny nose, no sinus pressure, no itching, no hives, and no frequent sneezing. ROS as noted in the HPI Physical Exam Patient is a 65-year-old male. Constitutional: General Appearance healthy-appearing and thin. Level of Distress NAD. Ambulation ambulating normally. Cardiovascular: Apical Impulse not displaced or no thrill. Heart Auscultation normal s1 and s2; no murmurs, rubs, or gallops; and RRR. Arterial Pulses no abdominal aorta bruits, femoral bruits, or popliteal bruits and 2+ bilateral, carotid 2+ bilateral, femoral 2+ bilateral, popliteal 2+ bilateral, and dorsalis pedis 2+ bilateral. Edema no edema or varicosities. Lungs: Repiratory Effort no dyspnea. Percussion no hyperreso nance or dullness or flatness. Auscultation no wheezing, rhonchi, or rales / crackles and breathing sounds normal, good air movement, and CTA except as noted. Abdomen: Bowl Sounds normal. Inspection and Palpation no tenderness, guarding, masses, or rebound tenderness and soft and non-distended; palpable abdominal aortic aneurysm Nontender. Liver non-tender and no hepatomegaly. Spleen non-tender and no splenomegaly. Hernia none palpable. Musculoskeletal System: Gait And Stance normal gait and stance. Digits and Nails normal nails and no cyanosis. Neurologic: Cranial Nerves grossly intact. Reflexes DTRs 2+ bilaterally throughout. Sensation grossly intact. Lymph Nodes: Lymph Nodes no cervical LAD, supraclavicular LAD, axillary LAD, or inguinal LAD. Eyes: Lids and Conjunctivae no discharge or pallor and non-injected. Pupils PERRLA. Cornea grossly intact. EOM EOMI. Lens clear. Sclerae non-icteric. Neck: Neck no masses, enlarged lymph nodes, or carotid bruits and supple and trachea midline. Thyroid no enlargement or nodules and non-tender. Skin: Inspection and Palpation no rash, lesions, ulcers, jaundice, or abnormal nevi. Assessment / Plan normal aortic aneurysm with dissection HISTORY AND PHYSICAL [id number] LEWIS SIMS 1. Abdominal aortic aneurysm without rupture I71.4: Abdominal aortic aneurysm, without rupture ABDOMINAL AORTIC ANEURYSM: CARE INSTRUCTIONS Discussion Notes abdominal aortic aneurysm with dissection I have discussed his disease process with him and his in detail as well as the alternative methods of treatment. We disc ussed endovascular and open repair of his abdominal aortic aneurysm including the expected benefits and risk which include bleeding, infection, stroke, , and the imponderables. They understand all of the above and wishes to proceed with planned proce dure. Scheduled for abdominal aortic aneurysm repair ZHEN ESPARZA MD at 1049 CC: [id number] DICTATION DATE: 05/03/16 1345 FLIGHT DIRECTOR: FABIENNE 05/04/16 1529 PRE IN [facility] [address] [place] [address]
[2016-05-07 11:14] LABS: BASOPHILS 0.3 % (0.0-2.0); EOSINOPHILS 1.5 % (0-7); HEMATOCRIT 42.7 % (42.0-54.0); HEMOGLOBIN 14.2 g/dL (13.5-17.5); IMMATURE GRANULOCYTES 0.1 % (0-5); LYMPHOCYTES 33.7 % (15-50); MCH 29.2 pg (26.0-34.0); MCHC 33.3 g/dL (31.0-37.0); MCV 87.9 fL (80.0-100.0); MEAN PLATELET VOLUME 9.9 fL (7.4-10.4); NEUTROPHILS 54.4 % (40-80); RBC 4.86 10x6/uL (4.20-6.10); RDW 15.5 % (11.5-14.5); WBC 6.8 10x3/uL (4.8-10.8)
[2016-05-07 11:29] LABS: PLATELET COUNT 166 10x3/uL (130-400)
[2016-05-07 11:32] LABS: ALBUMIN 3.8 g/dL (3.4-5.0); ALKALINE PHOSPHATASE 83 U/L (46-116); ALT (SGPT) 38 U/L (10-68); BILIRUBIN - TOTAL 0.52 mg/dL (0.2-1.3); CALC OSMOLALITY 280 mosm/kg (275-300); CALCIUM 8.8 mg/dL (8.5-10.1); CARBON DIOXIDE 31.3 mmol/L (21.0-32.0); CHLORIDE - SERUM 99 mmol/L (98-107); CREATININE - SERUM 0.9 mg/dL (0.6-1.3); GLUCOSE 180 mg/dL (74-106); POTASSIUM - SERUM 3.9 mmol/L (3.5-5.1); PROTEIN - SERUM 6.8 g/dL (6.4-8.2); SODIUM 137 mmol/L (136-145); UREA NITROGEN 17 mg/dL (7-18); eGFR NON AFRICAN AMERICAN 90 mL/min (90-120)
[2016-05-07 11:35] LABS: APPEARANCE HAZY (CLEAR); BILIRUBIN NEGATIVE (NEGATIVE); COLOR YELLOW (YELLOW); GLUCOSE NEGATIVE (NEGATIVE); KETONE SMALL mg/dL (NEGATIVE); LEUKOCYTE ESTERASE NEGATIVE (NEGATIVE); NITRITE NEGATIVE (NEGATIVE); PROTEIN NEGATIVE (NEGATIVE); UROBILINOGEN NORMAL (NORMAL)
[2016-05-07 11:46] LABS: APTT 31.6 SECONDS (22.8-39.4); INR 1.16 (0.85-1.17); PROTIME 14.7 SECONDS (11.6-15.0)
[~2016-05-08] VITALS: Ht 185.4 cm; Wt 83.1 kg
[2016-05-08] VITALS (14 sets, daily range): BP systolic 101–139; BP diastolic 47–70; BMI 22.6; BMI 23.2
[~2016-05-08 05:15] MED LIST changes: +PLAVIX75 MG PO
--- NOTE | 2016-05-08 11:45 | NUR ---
ADMIT TO CVICU. SEE FLOWSHEET.
--- NOTE | 2016-05-08 15:00 | NUR ---
REASSESSED. VOICES NO CO AT TIME.
--- NOTE | 2016-05-08 20:00 | NUR ---
REPORT RECEIVED CARE ASSUMED. PT AAOX4. DENIES PAIN DENIES NEEDS. SHIFT ASSESSMENT COMPLETED SEE FLOWSHEET. IV LINES DATED AND LABELED APPROPRIATE. DOPAMINE AND NITRO OFF. IVF PER PUMP AND RECORDED ON IV FLOWSHEET. CURRENTLY ON INSULIN GTT WITH RATE CHANGES PER INSULIN FLOWSHEET PT MONITORED PER STANDARD CVICU PROTOCOL WITH ALL ALARMS SET AND VERIFIED. BED IN LOW POSITION CALL LIGHT IN REACH. AT BEDSIDE.
--- NOTE | 2016-05-08 21:00 | NUR ---
HS MEDS GIVEN RECORDED ON MAY. PT HAD NO DIFFICULTY SWALLOWING MEDS. DID REFUSE SENNOKOT. MONITORING GLUCOSE PER INSULIN GTT PROTOCOL WITH ALL CHANGES ON FLOWSHEET. REMAINS AT BEDSIDE. PT CONTINUES TO DENY NEEDS AND PAIN. BEING ASSISTED WITH REPOSITIONING Q2H WITH PILLOWS USED TO PROVIDE SUPPORT AND RELIEVE PRESSURE.
--- NOTE | 2016-05-08 22:06 | NUR ---
PT VOMITED 50CC EMESIS. ZOFRAN GIVEN S PER MAY. PT VERBALIZED IMMEDIATE RELIEF OF NAUSEA
--- NOTE | 2016-05-08 23:00 | NUR ---
SHIFT REASSESSMENT COMPLETED SEE FLOWSHEET. PT HAS HAD NO FURTHER NAUSEA OR EMESIS.
[2016-05-09] VITALS (23 sets, daily range): BP systolic 118–150; BP diastolic 47–70; Ht 185.4 cm; Wt 83.1 kg
--- NOTE | 2016-05-09 01:00 | NUR ---
PT SLEEPING AT THIS TIME RESP REG AND NONLABORED.
--- NOTE | 2016-05-09 03:30 | NUR ---
REASSESSMENT COMPLETE, NO CHANGES NOTED, PT RESTING AT THIS TIME, DENIES ANY PAIN OR NEEDS, VSS, CALL LIGHT IN REACH
--- NOTE | 2016-05-09 06:00 | NUR ---
AM LABS DRAWN AND SENT FOR ANALYSIS. PT HAS BEEN RESTING COMFORTABLY THROUGHTOUT THE NIGHT. DENIES NEEDS AT THIS TIME. DRESSINGS TO GROINS BILAT REMAIN CDI AND GROIN WITHOUT HEMATOMA OR DRAINAGE. CURRENTLY ON INSULIN GTT AT 3U/HR. AT BEDSIDE
[2016-05-09 06:23] LABS: MCH 28.2 pg (26.0-34.0); MCHC 31.8 g/dL (31.0-37.0); MCV 88.8 fL (80.0-100.0); MEAN PLATELET VOLUME 9.9 fL (7.4-10.4); RDW 15.4 % (11.5-14.5)
[2016-05-09 06:28] LABS: HEMATOCRIT 31.8 % (42.0-54.0); HEMOGLOBIN 10.1 g/dL (13.5-17.5); RBC 3.58 10x6/uL (4.20-6.10); WBC 12.2 10x3/uL (4.8-10.8)
[2016-05-09 06:42] LABS: CALCIUM 7.3 mg/dL (8.5-10.1); CHLORIDE - SERUM 104 mmol/L (98-107); CREATININE - SERUM 0.8 mg/dL (0.6-1.3); POTASSIUM - SERUM 3.3 mmol/L (3.5-5.1); SODIUM 138 mmol/L (136-145); eGFR NON AFRICAN AMERICAN > 90 mL/min (90-120)
[2016-05-09 06:44] LABS: CALC OSMOLALITY 276 mosm/kg (275-300); GLUCOSE 129 mg/dL (74-106); UREA NITROGEN 10 mg/dL (7-18)
--- NOTE | 2016-05-09 10:00 | NUR ---
RIGHT RADIAL ART LINE REMOVED, TIP INTACT. HOROWITZ CATHETER REMOVED, TIP INTACT.
--- NOTE | 2016-05-09 11:20 | NUR ---
Patient Name: LEWIS SIMS Admission Status: Elective Accout number: [id number] Admission Date: 05-08-2016 : 1950 Admission Diagnosis:ABDOMINAL AORTIC ANEURYSM, WITHOUT RUPTURE Attending: CARMELO Current LOS: 1 Anticipated DC Date: 05-10-2016 Planned Disposition: Home Primary Insurance: MEDICARE A & B Is the patient Alert and Oriented? Yes * How many steps to enter\exit or inside your home? NONE * PCP DR COFFEY IN [place], [place] * Pharmacy [facility] IN [place], [place] * Preadmission Environment Home with Family * ADLs Independent * Equipment Shower Chair IN WALK-IN SHOWER * Other Equipment GRAB BARS IN SHOWER * List name and contact numbers for known caregivers / representatives who currently or will assist patient after discharge: GRAEME SIMS, SPOUSE, * Community resources currently utilized None * Additional services required to return to the preadmission environment? No * Can the patient safely return to the preadmission environment? Yes * Has this patient been hospitalized within the prior 30 days at any hospital? No Discharge Planning Comments: CM MET WITH PATIENT AND HIS SPOUSE TO ASSESS DC PLAN/NEEDS. PT STATED HE LIVES AT HOME WITH HIS AND IS INDEPENDENT IN HIS CARE/ADL'S. STATED HE NORMALLY DRIVES HIMSELF, BUT THAT HIS WILL DRIVE HIM HOME AT DC. HE REPORTS HAVING NO DME IN HIS HOME AND DENIED NEED FOR ANY DME AT DC. STATED HE HAS NEVER USED HH OR REHAB SERVICES AND DENIED NEED FOR HH/REHAB SERVICES AT DC. AT THIS TIME, HE DENIES ANY DC NEEDS. CM WILL FOLLOW AND ASSIST WITH ANY DC NEEDS AT THEY ARISE. Supervisor Coffee: Prisca Barrientos RN,
--- NOTE | 2016-05-09 11:32 | NUR ---
PT NOW UP IN CHAIR. HAS WALKED TO EACH END OF UNIT WITH PHYSICAL THERAPY WITH NO DIFFICULTY. COMPLETE LINEN CHANGE PROVIDED.
--- NOTE | 2016-05-09 13:46 | NUR ---
PT SITTING UP IN CHAIR. WORKING ON INCENTIVE SPIROMETRY. REACHING 2500 CONSISTENTLY.
--- NOTE | 2016-05-09 14:20 | NUR ---
PT UP WALKING WITH PHYSICAL THERAPY. GAIT STEADY. WALKED DOWN UNIT, OUT AND AROUND CATHLAB AREA AND BACK. NO DISTRESS NOTED. PORTABLE MONITOR SHOWED VTACH FOR A FEW SECONDS WHILE PATIENT WAS WALKING. ASYMPTOMATIC. ONCE PT PAUSED READING BECAME SINUS AGAIN.WHEN PLACED BACK ON REGULAR MONITOR, SINUS READING ALSO.
--- NOTE | 2016-05-09 14:37 | NUR ---
PT UP TO URINATE. NO DIFFICULTY. DID C/O SOME MILD IRRITATION AT BEGINNING OF STREAM.
--- NOTE | 2016-05-09 15:20 | NUR ---
PT HAD RUN OF V-TACH. 10 BEATS THEN CONVERTED BACK TO SINUS. CALLED DR ESPARZA. REVIEWED PT MEDICATIONS. PT HAD 3.3 POTASSIUM LEVEL AT LAST LAB DRAW. WANTS PT TO HAVE 40MEQ OF POTASSIUM RUN OVER 3 HOURS AND THEN START 20MG ORAL POTASSIUM BID. CONSULT MYAH.
--- NOTE | 2016-05-09 15:51 | NUR ---
IV POTASSIUM INITIATED.
--- NOTE | 2016-05-09 16:07 | NUR ---
CENTRAL LINE DRESSING CHANGED. SITE WNL. NO REDNESS, NO DISCHARGE.
--- NOTE | 2016-05-09 16:10 | NUR ---
DR HERNANDEZ IN TO SEE PATIENT.
--- NOTE | 2016-05-09 16:57 | NUR ---
PT UP IN CHAIR EATING DINNER. HAS VOIDED 600ML OF PALE YELLOW URINE. PT TOLERATING ADA DIET. NO COMPLAINTS VOICED.
--- NOTE | 2016-05-09 19:15 | NUR ---
REPORT RECEIVED CARE ASSUMED. INITIAL SHIFT ASSESSMENT COMPLETED SEE FLOWSHEET. PT UP IN CHAIR WATCHING TV. DENIES NEEDS AND PAIN TOLERATING DIET WITHOUT NAUSEA. IVF VIA PUMP AND RECORDED ON FLOWSHEET. ALL LINES AND FLUIDS DATED AND LABELED AND NOT DUE TO BE CHANGED. LEFT SC CVL DRESSING CDI CHANNGED TODAY LABELED APPROPRIATE. BIILAT GROIN DRESSINGS (SURGICAL DRESSINGS) CDI NO DRAINAGE AND ONLY MILD TENDERNESS WITH PALPATION. PEDAL PULSES WEAK BUT PALPAPBLE. DRESSING TO RIGHT WRIST WHERE A-LINE WAS DC'D TODAY. PT VOIDING EASILY AND WITH CLEAR YELLOW URINE PER HIS REPORT, UNOBSERVED AT THIS TIME. BEING MONITORED PER STANDARD CVICU PROTOCOL WITH ALL ALARMS VERIFIED AND SET. NOTE AN OCCASIONAL PVC. DR. ESPARZA AWARE OF THIS ARRHYTHMIA PER REPORT. CALL LIGHT IN REACH.
--- NOTE | 2016-05-09 20:30 | NUR ---
HS MEDS ADMINISTERED WITHOUT DIFFICULTY. NO SWALLOWING PROBLEMS NOTED. PT TEACHING DONE ON EACH MED WITH PT VERBALIZING GOOD COMPREHENSION OF MEDICATIONS. AT BEDSIDE.
--- NOTE | 2016-05-09 21:30 | NUR ---
PT TIRED. AMBULATED WITH STEADY GAIT TO BED. CONTINUES TO DENY PAIN. NO CHANGES
--- NOTE | 2016-05-09 23:07 | NUR ---
SHIFT REASSESSMENT COMPLETED SEE FLOWSHEET. PT SLEEPING WELL VSS ONLY A RARE PVC SEEN PER CM. PT DENIES PAIN AND NEEDS. RESP REG AND NONLABORED. NO SIGNIFICANT CHANGE
[2016-05-10] VITALS (10 sets, daily range): BP systolic 127–142; BP diastolic 49–71
--- NOTE | 2016-05-10 01:00 | NUR ---
PT SLEEPING RESP REG AND NONLABORED. EASILY AWAKEN. DENIES NEEDS. STATED HE USED "MY PAIN BUTTON FOR A HEADACHE" RESOLVED NOW.
--- NOTE | 2016-05-10 03:00 | NUR ---
SHIFT REASSESSMENT COMPLETED NO SIGNIFICANT CHANGES. EASILY AWAKEN. VSS CONTINUES TO HAVE OCCASIONAL PVC ASYMPTOMATIC.
--- NOTE | 2016-05-10 05:00 | NUR ---
pt sleeping. resp reg and nonlabored. no evidence of distress
[2016-05-10 06:37] LABS: BASOPHILS 0.1 % (0.0-2.0); EOSINOPHILS 0.2 % (0-7); HEMATOCRIT 31.2 % (42.0-54.0); HEMOGLOBIN 10.3 g/dL (13.5-17.5); IMMATURE GRANULOCYTES 0.3 % (0-5); LYMPHOCYTES 15.8 % (15-50); MCH 28.9 pg (26.0-34.0); MCV 87.4 fL (80.0-100.0); MEAN PLATELET VOLUME 10.2 fL (7.4-10.4); MONOCYTES 12.3 % (2-11); NEUTROPHILS 71.3 % (40-80); PLATELET COUNT 125 10x3/uL (130-400); RBC 3.57 10x6/uL (4.20-6.10); RDW 15.4 % (11.5-14.5)
[2016-05-10 06:39] LABS: WBC 8.6 10x3/uL (4.8-10.8)
[2016-05-10 06:48] LABS: CALC OSMOLALITY 273 mosm/kg (275-300); CALCIUM 7.4 mg/dL (8.5-10.1); CARBON DIOXIDE 25.5 mmol/L (21.0-32.0); CHLORIDE - SERUM 101 mmol/L (98-107); CREATININE - SERUM 0.9 mg/dL (0.6-1.3); GLUCOSE 167 mg/dL (74-106); POTASSIUM - SERUM 3.5 mmol/L (3.5-5.1); SODIUM 136 mmol/L (136-145); UREA NITROGEN 8 mg/dL (7-18); eGFR NON AFRICAN AMERICAN 90 mL/min (90-120)
--- NOTE | 2016-05-10 07:00 | NUR ---
PT REPORT REC'D, PT CARE ASSUMED. PT AAO X4. VSS, ROOM AIR. RIGHT EYE A LITTLE RED, LEFT SUBCLAVIAN CVL WITH FLUIDS INFUSING, SEE FLOW SHEET. LEFT AC PIV S/L, DRESSING CDI. BILAT GROIN DRESSING CDI. SCD'S AND CAMI'S. BILAT PALP PEDAL PULSES. SHIFT ASSESSMENT COMPLETED, SEE FLOW SHEET. ROOM FREE OF CLUTTER, CALL LIGHT IN REACH. WILL CONTINUE TO MONITOR PT.
--- NOTE | 2016-05-10 07:28 | NUR ---
TRANSFERRED PT FROM BED TO CHAIR FOR BREAKFAST. PT TOLERATED WELL, WILL CONTINUE TO MONITOR PT.
--- NOTE | 2016-05-10 08:43 | NUR ---
PATIENT AMBULATED APPROX 500 FT WITH PHYSICAL THERAPY. PT TOLERATED WELL, VSS. WILL CONTINUE TO MONITOR PT.
--- NOTE | 2016-05-10 09:02 | NUR ---
DR. ESPARZA AND ARNOLDO HWANG AT THE BEDSIDE. ALL QUESTIONS ANSWERED. VSS, WILL CONTINUE TO MONITOR PT.
[2016-05-10] MEDS ORDERED: LOPRESSOR25 MG PO (09:09)
[2016-05-10] MEDS ORDERED: HYDROCODON-ACE1 EAC7 PO (09:10)
[2016-05-10] MEDS ORDERED: COLACE100 MG PO (09:11)
[2016-05-10] MEDS ORDERED: K-DUR20 MEQ PO (09:11)
--- NOTE | 2016-05-10 09:21 | NUR ---
DC'ED LEFT AC PIV, TIP INTACT, 4X4'S APPLIED, BANDAGE SECURED. DC'ED LEFT SUBCALVIAN CVL, TIP INTACT, 4X4'S APPLIED, BANDAGE SECURED.
--- NOTE | 2016-05-10 09:45 | NUR ---
WHEELED PT OUT VIA WHEEL CHAIR. PT RIDING WITH . D/C INSTRUCTIONS SIGNED AND GIVEN. PT VERBALIZED UNDERSTANDING. F/U APPT WITH DR. ESPARZA 05/31/16 AT 1345, PT VERBALIZED UNDERSTANDING.
--- NOTE | 2016-05-12 11:06 | OP ---
PATIENT NAME: LEWIS SIMS MEDICAL RECORD: [id number] :[birth year] LOCATION:[id number] ADMISSION DATE:05/08/16 SURGEON: JOSE MIGUEL TUCKER MD DATE OF OPERATION: 05/08/2016 SURGEON: Jose Miguel Tucker MD ANESTHESIA: General endotracheal, Dr. Sullivan. OPERATION PERFORMED: 1. Endovascular stent repair of abdominal aortic aneurysm. 2. Open femoral exposure bilaterally, 90329-22. 3. Catheter sheath placement into the aorta bilaterally, 87978-86. 4. Endo triple A repair and modular bifurcated device, 1 docking limb, 15071. A. RAD S&I Endo triple A repair, 46447-08. 5. Noncoronary arterial stent, initial artery, left common and external iliac artery, 05291. PREOPERATIVE DIAGNOSES: Abdominal aortic aneurysm with iliac artery stenosis. POSTOPERATIVE DIAGNOSES: Abdominal aortic aneurysm with iliac artery stenosis. INDICATION FOR OPERATION: Abdominal aortic dissection, abdominal aortic aneurysm. FINDINGS OF THE OPERATION: The fluoroscopic time was 14 minutes 16 seconds. The contrast was 160 mL. ESTIMATED BLOOD LOSS: Less than 100 cc. DESCRIPTION OF PROCEDURE: Arteriogram demonstrated the abdominal aortic aneurysm, dissection in the wall of the abdominal aorta and stenosis of the left external iliac artery. Post-endovascular stent repair, there was residual stenosis of the left external iliac artery. Therefore, a 10 x 39mm stent was deployed in the common iliac and external iliac artery. Completion arteriogram demonstrates good flow through the iliac area and no endoleaks. DESCRIPTION OF PROCEDURE: After informed consent, adequate preoperative medication evaluation, the patient was brought to the operating room, placed on the table in the supine position. After induction of general endotracheal anesthesia and application of appropriate monitoring devices, the chest, abdomen, groin, both thighs were prepped and draped in a sterile field, utilizing Betadine scrub, alcohol, and Betadine solution. A Betadine-impregnated drape was also used. Bilateral groin incisions were made obliquely above the inguinal ligament. Dissection carried down the fascia. Hemostasis maintained with electrocautery. The distal iliac, common femoral arteries were dissected free of surrounding structures bilaterally with the branch vessels encircled with vessel loops. The patient was given a calculated dose of heparin. Utilizing a micropuncture technique, the right common femoral artery was accessed and a 7-Romanian sheath exchanged after the initial 4-Romanian sheath placed. A wire was placed into the distal aorta. Utilizing a Glidewire and exchange was made for an Amplatz wire. Attention was then turned toward the left groin. A micropuncture technique was made and the 4-Romanian sheath was OPERATIVE REPORT [id number] LEWIS SIMS exchanged for a 6-Romanian sheath. A wire was manipulated into the distal aorta and exchange for an Amplatz wire. The main body device was then placed in the artery, but could not be passed into the aorta due to binding at the external iliac, common iliac artery junction. This was removed and a 14-Romanian sheath placed. The iliac was dilated with a 7-Romanian balloon. This allowed passage of the main body into the aorta. A repeat aortogram was performed and the main body of the device was deployed just below the renal arteries. The contralateral gate was opened. Utilizing a Kumpe catheter and Glidewire, the contralateral gate was cannulated and the Kumpe catheter were manipulated into the distal aorta and Amplatz wire was then placed. The docking limb was then placed on the right and deployed with a good result. Attention was then turned toward the main body. The ipsilateral limb was then deployed utilizing bilateral Reliant balloons. The main body and limbs were dilated. An arteriogram was performed and demonstrated good flow with no endoleaks. There was, however, residual stenosis in the left iliac. A retrograde left iliac arteriogram was made under magnification, measurements made and a 10 x 39 balloon expandable stent was placed at the junction of the common and external iliac artery with a good result and no residual. Repeat arteriogram reveals good flow through both iliac arteries. The wires, catheter sheaths were removed and the artery was repaired in 2 layers of running 6-0 Prolene suture. All maneuvers to remove trapped air were performed. The clamps were removed sequentially. There was good flow through both vessels by palpation and by Doppler. The patient was then given a calculated dose of protamine to reverse the heparin that was given as the initial sheath was placed. Hemostasis was assured. Instrument count and sponge count were correct times 2. The wound was closed in layers utilizing 2-0 Vicryl on deep subcutaneous tissue, 5-0 subcuticular Monocryl on the skin. Sterile dressings were applied. The patient tolerated the procedure well and was transferred to the ICU in satisfactory condition. TRANSINT:[id number] Voice Confirmation ID: [id number] DOCUMENT ID: [id number] JOSE MIGUEL TUCKER MD at 1106 CC: [id number] DICTATION DATE: 05/08/16 1150 PHARMACY ACCOUNT DIRECTOR: 05/08/16 1405 DIS IN 05/10/16 [place] [id number] [place] [id number]
--- NOTE | 2016-05-27 12:51 | DS ---
PATIENT:LEWIS SIMS :[birth year] MEDICAL RECORD: [id number] DISCHARGE SUMMARY ADMISSION DATE: 05/08/16 DISCHARGE DATE: 05/10/16 DISCHARGE DIAGNOSES: 1. Abdominal aortic aneurysm. 2. Ventricular tachycardia. 3. Atherosclerosis of [place] arteries, left leg. 4. Essential hypertension. 5. Type 2 diabetes mellitus. 6. Gastroesophageal reflux. 7. Hyperlipidemia. 8. Tobacco use. DISCHARGE MEDICATIONS: Please see medical reconciliation form. DISPOSITION: The patient discharged home. He has appointment to see Dr. Tucker in 2-3 weeks. HOSPITAL COURSE: Mr. Hyman was admitted to the hospital and underwent endovascular stent repair of his abdominal aortic aneurysm. Postoperatively, he did well, had no problems with bleeding, infection or arrhythmias. On his final hospital day, his incisions are healing well. He is taking a diet and ambulating and eager to go home. He has been given discharge instructions, wound precautions and will be seen as above. TRANSINT:[id number] Voice Confirmation ID: [id number] DOCUMENT ID: [id number] ZHEN TUCKER MD at 1251 CC: [id number] DICTATION DATE: 05/19/16 1421 INSTRUMENT ASSEMBLY SUPERVISOR: 05/20/16 0950 DIS IN 05/10/16 [place] [id number] [place] [address]
== END 2016-05-10 09:45 | disposition home or self-care (01) | DRG 269 ==
LOC: D.CVICU 05:15 → D.SDCHOLD 05:15 → D.CVICU 10:46
PROVIDERS: ADMIT Internal Medicine Cardiovascular Disease
PROC: 047J3DZ Dilation of Left External Iliac Artery with Intraluminal Device, Percutaneous Approach (ICD-10-PCS; 2016-05-08)
PROC: 047D3DZ Dilation of Left Common Iliac Artery with Intraluminal Device, Percutaneous Approach (ICD-10-PCS; 2016-05-08)
PROC: 04V03DZ Restriction of Abdominal Aorta with Intraluminal Device, Percutaneous Approach (ICD-10-PCS; principal; 2016-05-08 07:30)
DX: I71.4 Abdominal aortic aneurysm, without rupture (principal); I47.2 Ventricular tachycardia; I70.202 Unspecified atherosclerosis of native arteries of extremities, left leg; I10 Essential (primary) hypertension; E11.9 Type 2 diabetes mellitus without complications; K21.9 Gastro-esophageal reflux disease without esophagitis; E87.6 Hypokalemia; Z72.0 Tobacco use

== ENCOUNTER → 2016-05-31 13:43 | Outpatient (CLI) | payer MEDICARE, BC ==
[2016-05-09 09:46] VITALS: BMI 23.7
[~2016-05-31 13:43] MED LIST changes: +COLACE100 MG PO; +HYDROCODON-ACE1 EAC7 PO; +K-DUR20 MEQ PO; +LOPRESSOR25 MG PO
[2016-05-31 14:03] LABS: HEMOGLOBIN 12.2 g/dL (13.5-17.5); MCH 28.6 pg (26.0-34.0); MCHC 32.1 g/dL (31.0-37.0); MEAN PLATELET VOLUME 9.7 fL (7.4-10.4); RBC 4.27 10x6/uL (4.20-6.10); RDW 14.5 % (11.5-14.5); WBC 8.1 10x3/uL (4.8-10.8)
[2016-05-31 14:37] LABS: ALBUMIN 3.3 g/dL (3.4-5.0); ALKALINE PHOSPHATASE 116 U/L (46-116); ALT (SGPT) 37 U/L (10-68); BILIRUBIN - TOTAL 0.39 mg/dL (0.2-1.3); CALC OSMOLALITY 281 mosm/kg (275-300); CALCIUM 8.3 mg/dL (8.5-10.1); CARBON DIOXIDE 27.5 mmol/L (21.0-32.0); CHLORIDE - SERUM 100 mmol/L (98-107); CREATININE - SERUM 0.9 mg/dL (0.6-1.3); GLUCOSE 227 mg/dL (74-106); POTASSIUM - SERUM 4.1 mmol/L (3.5-5.1); PROTEIN - SERUM 5.9 g/dL (6.4-8.2); SODIUM 137 mmol/L (136-145); UREA NITROGEN 14 mg/dL (7-18); eGFR NON AFRICAN AMERICAN 90 mL/min (90-120)
== END | disposition home or self-care (01) ==
LOC: D.LAB 13:43
PROVIDERS: Internal Medicine Cardiovascular Disease
DX: J90 Pleural effusion, not elsewhere classified (principal); D64.9 Anemia, unspecified

== ENCOUNTER → 2016-10-15 12:51 | Outpatient (CLI) | payer MEDICARE, BC ==
[2016-05-09 09:46] VITALS: BMI 23.7
== END | disposition home or self-care (01) ==
LOC: D.US 12:51
DX: I73.9 Peripheral vascular disease, unspecified (principal)

== ENCOUNTER → 2017-02-20 12:57 | Outpatient (CLI) | payer MEDICARE, BC ==
[2016-05-09 09:46] VITALS: BMI 23.7
[~2017-02-20 12:57] MED LIST changes: +HYDROCODONE-APA1 TAB PO; +LANTUS INSULIN10 ML SC
== END | disposition home or self-care (01) ==
LOC: D.CT 10:30
DX: I70.223 Atherosclerosis of native arteries of extremities with rest pain, bilateral legs (principal)

== ENCOUNTER 2017-03-11 07:27 | Outpatient (CLI) | payer MEDICARE, BC ==
[~2017-03-11] VITALS: Ht 185.4 cm; Wt 81.8 kg
[~2017-03-11 07:27] MED LIST changes: -HYDROCODONE-APA1 TAB PO; -LANTUS INSULIN10 ML SC
[2017-03-11] MEDS ORDERED: LANTUS INSULIN10 ML SC (08:40)
[2017-03-11 08:50] LABS: BASOPHILS 0.1 % (0-2); EOSINOPHILS 3.1 % (0-7); HEMATOCRIT 40.6 % (42.0-54.0); HEMOGLOBIN 13.4 g/dL (13.5-17.5); IMMATURE GRANULOCYTES 0.1 % (0-5); LYMPHOCYTES 28.8 % (15-50); MCH 28.5 pg (26.0-34.0); MCV 86.2 fL (80.0-100.0); MEAN PLATELET VOLUME 9.5 fL (7.4-10.4); MONOCYTES 12.3 % (2-11); NEUTROPHILS 55.6 % (40-80); PLATELET COUNT 192 10x3/uL (130-400); RBC 4.71 10x6/uL (4.20-6.10); RDW 13.9 % (11.5-14.5); WBC 7.1 10x3/uL (4.8-10.8)
[2017-03-11 08:59] LABS: APTT 31.3 SECONDS (22.8-39.4); INR 0.98 (0.85-1.17); PROTIME 12.6 SECONDS (11.6-15.0)
[2017-03-11 09:03] VITALS: BP 124/68; Ht 185.4 cm; Wt 81.8 kg
[2017-03-11 09:05] LABS: CALC OSMOLALITY 279 mosm/kg (275-300); CALCIUM 9.3 mg/dL (8.5-10.1); CARBON DIOXIDE 30.3 mmol/L (21.0-32.0); CHLORIDE - SERUM 100 mmol/L (98-107); GLUCOSE 126 mg/dL (74-106); POTASSIUM - SERUM 3.8 mmol/L (3.5-5.1); SODIUM 139 mmol/L (136-145); UREA NITROGEN 12 mg/dL (7-18); eGFR NON AFRICAN AMERICAN 79 mL/min (90-120)
== END 2017-03-11 15:20 | disposition home or self-care (01) ==
LOC: D.OPS 07:27 → D.CT 10:00 → D.OPS 10:00 → D.SP 10:00 → D.CT 14:00 → D.OPS 15:20
PROVIDERS: Radiology Diagnostic Radiology
DX: R91.8 Other nonspecific abnormal finding of lung field (principal); I73.9 Peripheral vascular disease, unspecified; I71.4 Abdominal aortic aneurysm, without rupture; Z01.812 Encounter for preprocedural laboratory examination

== ENCOUNTER → 2017-03-14 08:32 | Outpatient (CLI) | payer MEDICARE, BC ==
[2017-03-11 09:03] VITALS: BMI 23.8
[~2017-03-14 08:32] MED LIST changes: +HYDROCODONE-APA1 TAB PO; +LANTUS INSULIN10 ML SC
== END | disposition home or self-care (01) ==
LOC: D.RT 08:32
DX: R91.8 Other nonspecific abnormal finding of lung field (principal)

== ENCOUNTER 2017-03-29 05:00 | Inpatient (IN) | payer MEDICARE, BC ==
[2017-03-27 16:11] LABS: HEMATOCRIT 41.3 % (42.0-54.0); HEMOGLOBIN 13.7 g/dL (13.5-17.5); MCH 28.8 pg (26.0-34.0); MCHC 33.2 g/dL (31.0-37.0); MCV 86.8 fL (80.0-100.0); MEAN PLATELET VOLUME 9.7 fL (7.4-10.4); RBC 4.76 10x6/uL (4.20-6.10); RDW 13.6 % (11.5-14.5); WBC 7.5 10x3/uL (4.8-10.8)
[2017-03-27 16:28] LABS: APPEARANCE CLEAR (CLEAR); BILIRUBIN NEGATIVE (NEGATIVE); COLOR YELLOW (YELLOW); GLUCOSE NEGATIVE (NEGATIVE); KETONE NEGATIVE (NEGATIVE); NITRITE NEGATIVE (NEGATIVE); PROTEIN NEGATIVE (NEGATIVE); SPECIFIC GRAVITY 1.015 (1.005-1.020); UROBILINOGEN NORMAL (NORMAL)
[2017-03-27 16:37] LABS: APTT 30.8 SECONDS (22.8-39.4); INR 1.04 (0.85-1.17); PROTIME 13.2 SECONDS (11.6-15.0)
[2017-03-27 16:49] LABS: ANION GAP 16.4 mmol/L (8-16); BILIRUBIN - TOTAL 0.33 mg/dL (0.2-1.3); CARBON DIOXIDE 27.7 mmol/L (21.0-32.0); CREATININE - SERUM 1.2 mg/dL (0.6-1.3); POTASSIUM - SERUM 4.1 mmol/L (3.5-5.1)
[2017-03-29] VITALS (43 sets, daily range): BP systolic 80–138; BP diastolic 42–71; BMI 23.5
[~2017-03-29] VITALS: Ht 185.4 cm; Wt 80.6 kg
--- NOTE | ~2017-03-29 | OP ---
PATIENT NAME: LEWIS SIMS MEDICAL RECORD: [id number] :48 LOCATION:[id number] ADMISSION DATE:03/29/17 SURGEON: YARIEL FROST MD DATE OF OPERATION: 03/29/2017 Procurement Technician Note This patient had a left lower lobe mass. The complexity of the procedure was such that 2 attending surgeons were necessary in order to complete this complex procedure. I was present for all the critical portions of the procedure. My involvement in the procedure included a running the camera some, irrigation and aspiration, retraction of lumbar structures, isolation of vascular structures, and the bronchus with vessel loops. Some blunt dissection as well as dissection of some adhesions with the Harmonic scalpel. Assistance with node retrieval including some dissection with the Harmonic scalpel as well as retrieval of nodes through my port. I assisted Dr. Tucker with placement of the working port, which was an Devyn retractor. I also placed the posterior most thoracoscopic trocar. I assisted Dr. Tucker with insertion of the endoscopic retrieval bag. I assisted Dr. Tucker with placement of the operative lobar specimen within the retrieval bag and then I pulled the lobe, which was in the bag out through the working port. I then left as the working port site and the trocar sites were being closed. TRANSINT:[id number] Voice Confirmation ID: [id number] DOCUMENT ID: [id number] YARIEL FROST MD at 1454 CC: [id number] DICTATION DATE: 03/29/17 1122 AUTO SELF SERVICE STATION ATTENDANT: 03/29/17 1319 DIS IN 04/02/17 [place] [id number] [place] [address]
--- NOTE | ~2017-03-29 | HP ---
PATIENT: LEWIS SIMS MEDICAL RECORD: [id number] ACCOUNT: [id number] LOCATION:[facility] : 48 ADMISSION DATE: 03/29/17 HISTORY AND PHYSICAL EXAMINATION LEWIS Saavedra (66yo, M) ID# [id number]. Date/Time03/14/2017 01:[id number] Dept.[facility] ClinicProviderDIEGO ESPAZRA MDInsuranceMed Primary: [place] ([place]) Insurance # : [id number] Referring Provider Name : YOSELIN COFFEY Employer Name : UNKNOWN Med Secondary: [employer] - [place] Insurance # : [id number] Referring Provider Name : YOSELIN COFFEY Employer Name : UNKNOWN Prescription: CMX - Member is eligible. Chief Complaint Lung lesion Followup: Abdominal aortic aneurysm without rupture s/p EVS AAA 05/08/16 s/p CT lung biopsy 03/11/17 PFT, CT chest 03/14/17 discuss results, schedule lobectomy Patient's Care Team Referring Provider (): YOSELIN COFFEY: [address] [place] [id number], , Patient's Pharmacies [facility] ([place]): [address] [facility] [id number], , Vitals BP:122/64 sitting L arm 03/14/2017 02:05 pmBP Cuff Size:adult 03/14/2017 02:05 pmHR:64,reg 03/14/2017 02:05 pmHt:6 ft 1 in 03/14/2017 02:01 pmWt:178 lbs 03/14/2017 02:05 pmNotes:no new complaints 03/14/2017 02:05 pmBMI:23.5 03/14/2017 02:05 pmAllergies Reviewed Allergies NKDASome allergies listed in Document: #[id number] could not be added to this patient's chart. Please review this document and add these allergies to the patient's chart manually as needed.Medications Reviewed Medications Baby Aspirin 81 mg chewable tablet Chew 1 tablet(s) every day by oral route.03/21/[facility] 1 mL 31 gauge x 5/16"06/13/16 filled[facility]BD Insulin Syringe Ultra-Fine 1 mL 31 gauge x 15/64"01/10/17 filledCaremarkbetamethasone dipropionate 0.05 % cuqedn85/28/17 filledCaremarkbetamethasone dipropionate 0.05 % topical cream11/29/16 filledCaremarkbuPROPion HCl SR 150 mg tablet,12 hr sustained-release Take 1 tablet(s) twice a day by oral route for 30 days.02/08/17 filledCaremarkclobetasol 0.05 % scalp zmxhhaif06/23/17 filledCaremarkclopidogrel 75 mg tablet Take 1 tablet(s) every day by oral route.08/08/16 filledCaremarkfluticasone 50 mcg/actuation nasal spray,iddmijglol37/28/17 filledCaremarkFluzone High-Dose 5033-2565 (PF) 180 mcg/0.5 mL intramuscular gcatxme13/12/17 filledCaremarkgabapentin 300 mg cuqkxqu26/21/17 filledCaremarkHumuLIN N 100 unit/mL subcutaneous suspension Inject 6 unit(s) every day by subcutaneous route.07/06/16 filledCaremarkHYDROcodone 5 mg-acetaminophen 325 mg uusjxy39/25/17 HISTORY AND PHYSICAL [id number] BETHANY,LEWIS RAYMOND filledCaremarkiron 65 mg tablet Take 1 tablet(s) every day by oral route.03/21/16 [facility]Jan[facility] 50 mg-1,000 mg tablet Take 1 tablet(s) twice a day by oral route for 90 days.01/09/17 filledCaremarkKlor-Con M20 mEq tablet,extended haqfodc28/09/17 filledCaremarkLantus Solostar 100 unit/mL (3 mL) subcutaneous insulin pen01/17/17 filledCaremarklosartan 100 mg-hydrochlorothiazide 12.5 mg tablet Take 1 tablet(s) every day by oral route for 90 days.01/09/17 filledCaremarkmethylPREDNISolone 4 mg tablets in a dose pack07/26/16 filledCaremarkmetoprolol tartrate 25 mg tablet TAKE ONE TABLET BY MOUTH TWICE DAILY02/08/17 filledCaremarkmultivitamin tablet Take 1 tablet(s) every day by oral route.03/21/16 [facility] Wilsonniacin ER 500 mg capsule,extended release Take 1 capsule(s) twice a day by oral route.03/21/16 [facility] Wilsonniacin ER 500 mg tablet,extended release 24 hr02/01/17 filledCaremarknitroglycerin 0.4 mg sublingual /23/17 filledCaremarkOsmoPrep 1.5 gram (1.102-0.398) tablet Take 1 tablet(s) by oral route as directed.04/04/16 Junito Esparza, MDpeg 3350 240 gram-electrolytes 22.72 gram-6.72 g-5.84 g powdr for soln Take 240 mL by oral route as directed.05/03/16 filledCaremarkSuprep Bowel Prep Kit 17.5 gram-3.13 gram-1.6 gram oral ywommied78/26/17 filledCaremarkVaccines Reviewed Vaccines Some vaccines listed in Document: #[id number] could not be added to this patient's chart. Please review this document and add these vaccines to the patient's chart manually as needed. Problems Reviewed Problems Carcinoma of lung - Onset: 03/14/2017 Peripheral vascular disease - Onset: 05/31/2016 Abdominal aortic aneurysm without rupture - Onset: 03/20/2016 Family History Reviewed Family History Father- Malignant neoplastic diseaseMother- Malignant tumor of breast - Alzheimer's disease - Diabetes mellitusBrother- Diabetes mellitusSocial History Reviewed Social History Cardiology Smoking Status: Former smoker (Notes: using "E-cigarettes") High blood pressure: Y Diabetes: Y Marital status: Surgical History Reviewed Surgical History Other - penile prosthesis Heart revascularize (tmr) Heart revascularize (tmr) Spinal disk surgery add-on Tonsillectomy AAA Repair - 05/08/2016 - EVS Other - 04/09/2016 - PTCA stent Dr Wright Past Medical History Reviewed Past Medical History Chest Pain: Y HISTORY AND PHYSICAL [id number] LEWIS SIMS Circulation Problems: Y Coronary Artery Disease: Y Diabetes: Y GERD: Y Heart Disease: Y High Blood Pressure: Y Documents for Discussion N/A Screening None recorded. HPI Dyspnea Reported by patient. Associated Symptoms: no chest pain; no palpitations; no orthopnea; no PND; no fever; no chills; no wheezing; no dietary indiscretion; no sputum production; no hemoptysis; no weight gain; no dyspepsia Notes: no complaints. discussed watching for SOB, coming to ER if any breathing difficulty develops. adenocarcinoma left lower lobe ROS Patient reports muscle aches, muscle weakness, and arthralgias/joint pain but reports no back pain and no swelling in the extremities; lumbar spine disease No claudication. He reports no fever, no night sweats, no significant weight gain, no significant weight loss, and no exercise intolerance. He reports no dr y eyes, no irritation, and no vision change. He reports no difficulty hearing and no ear pain. He reports no frequent nosebleeds and no nose/sinus problems. He reports no sore throat, no bleeding gums, no snoring, no dry mouth, no mouth ulcers, no oral ab n ormalities, and no teeth problems. He reports no jugular vein distension and no swollen glands. He reports no chest pain, no arm pain on exertion, no shortness of breath when walking, no shortness of breath when lying down, no palpitations, and no known h e art murmur. He reports no cough, no wheezing, no shortness of breath, and no coughing up blood. He reports no abdominal pain, no vomiting, normal appetite, no diarrhea, not vomiting blood, no nausea, and no constipation. He reports no incontinence, no dif f iculty urinating, no hematuria, and no increased frequency. He reports no abnormal mole, no jaundice, and no rashes. He reports no loss of consciousness, no weakness, no numbness, no seizures, no dizziness, and no headaches. He reports no depression, no s leep disturbances, feeling safe in relationship, and no alcohol abuse. He reports no fatigue. He reports no swollen glands and no bruising. He reports no runny nose, no sinus pressure, no itching, no hives, and no frequent sneezing. ROS as noted in the HPI Physical Exam Patient is a 66-year-old male. Constitutional: General Appearance healthy-appearing and thin. Level of Distress NAD. Ambulation ambulating normally. Cardiovascular: Apical Impulse not displaced or no thrill. Heart Auscultation normal s1 and s2; no murmurs, rubs, or gallops; and RRR. Arterial Pulses no abdominal aorta bruits, femoral bruits, or popliteal bruits and 2+ bilateral, carotid 2+ bilateral, femoral 2+ bilateral, popliteal 2+ bilateral, and dorsalis p elayne 2+ bilateral. Edema no edema or varicosities. Lungs: Repiratory Effort no dyspnea. Percussion no hyperresonance or dullness or flatness. Auscultation no wheezing, rhonchi, or rales / crackles and breathing HISTORY AND PHYSICAL [id number] BETHANY,LEWIS KINDALL sounds normal, good air movement, and CTA except as noted. Abdomen: Bowl Sounds normal. Inspection and Palpation no tenderness, guarding, masses, or rebound tenderness and soft and non-distended. Liver non-tender and no hepatomegaly. Spleen non-tender and no splenomegaly. Hernia none palpable. Musculoskeletal System: Gait And Stance normal gait and stance. Digits and Nails normal nails and no cyanosis. Neurologic: Cranial Nerves grossly intact. Reflexes DTRs 2+ bilaterally throughout. Sensation grossly intact. Lymph Nodes: Lymph Nodes no cervical LAD, supraclavicular LAD, axillary LAD, or inguinal LAD. Eyes: Lids and Conjunctivae no discharge or pallor and non-injected. Pupils PERRLA. Cornea grossly intact. EOM EOMI. Lens clear. Sclerae non-icteric. Neck: Neck no masses, enlarged lymph nodes, or carotid bruits and supple and trachea midline. Thyroid no enlargement or nodules and non-tender. Skin: Inspection and Palpation no rash, lesions, ulcers, jaundice, or abnormal nevi. Assessment / Plan adenocarcinoma right lower lobe 1. Carcinoma of lung C34.32: Malignant neoplasm of lower lobe, left bronchus or lung 2. Abdominal aortic aneurysm without rupture I71.4: Abdominal aortic aneurysm, without rupture ABDOMINAL AORTIC ANEURYSM: CARE INSTRUCTIONS Discussion Notes the patient has moderate pneumothorax. He does not want a chest tube and would like to be followed symptomatically. Even with the pneumothoraxes pulmonary function studies are excellent and is a candidate for pulmonary resection. His CT scan demonstrates t he left lower lobe tumor without any mediastinal. I have discussed his disease process with him and his in detail as well as the alternative methods of treatment we discussed left pulmonary resection including the expected benefits and risks which in clude bleeding, infection, stroke, , and the imponderables. We discussed video-assisted thoracoscopy and open left thoracotomy for resection. He understands all of the above and wishes to proceed with planned surgery. We'll ask Dr. Bay to participate in the video-assisted thoracoscopy lobectomy. HISTORY AND PHYSICAL [id number] LEWIS SIMS EDWARD MD at 1117 CC: [id number] DICTATION DATE: 03/14/17 1310 RECREATION ATTENDANT SUPERVISOR: FABIENNE 03/22/17 1058 PRE [id number] [place] [address]
--- NOTE | ~2017-03-29 | OP ---
PATIENT NAME: LEWIS SIMS MEDICAL RECORD: [id number] :48 LOCATION:[facility] ADMISSION DATE:03/29/17 SURGEON: JOSE MIGUEL ESPARZA MD DATE OF OPERATION: 03/29/2017 SURGEON: Jose Miguel Esparza MD [employer] TERRAZZO FINISHER: Robert Bay MD ANESTHESIA: General endotracheal, Dr. Lester. OPERATION PERFORMED: 1. Left video-assisted thoracoscopy. 2. Left lower lobe resection. 3. Left mediastinal lymphadenectomy. 4. Flexible fiberoptic bronchoscopy. PREOPERATIVE DIAGNOSIS: Carcinoma of the left lower lobe. POSTOPERATIVE DIAGNOSIS: Carcinoma of the left lower lobe. INDICATION FOR OPERATION: Carcinoma of the left lower lobe. FINDINGS OF THE OPERATION: Carcinoma of the left lower lobe. There were no lymph nodes to be harvested at level 8 and 9. There were nodes taken with the specimen around the hilum. There were separate level 10 nodes dissected and sent separately. There were no lymph nodes found at level 5 or level 6. Level 7 along the main stem bronchus, no nodes found. ESTIMATED BLOOD LOSS: Less than 150 cc. DESCRIPTION OF PROCEDURE: After informed consent, adequate preoperative medication evaluation, the patient was brought to the operating room, placed on the table in the supine position. After induction of general endotracheal anesthesia and application of appropriate monitoring devices, the patient underwent flexible fiberoptic bronchoscopy and placement of a double lumen tube. The patient was then turned into right lateral decubitus position and the pressure points and neurological structures protected. The left chest was prepped and draped in a sterile field, utilizing Betadine scrub, alcohol, and Betadine solution. Betadine-impregnated drape was also used. The first port placed was in the ninth interspace, mid axillary line. This was placed and the scope introduced. There were adhesions from the upper lobe to the chest wall and anterior and posterior ports were placed under direct vision. The adhesions were lysed. A utility port was placed in the mid axillary line, third interspace. The lung was examined. The fissures were not complete and there were adhesions between the 2 lobes. The lower lobe was then elevated and the adhesions lysed between the diaphragm and the lower lobe. The inferior pulmonary ligament was then dissected. There were no nodes at level 8 or 9. The hilum was then dissected anteriorly and posteriorly. Utilizing sharp and blunt dissection, the left inferior pulmonary vein was isolated and surrounded with a vessel loop. Attention was turned toward the fissures to make it easier to expose the lung. The anterior fissure was completed with an Endo-TOSHIA stapler. With this, we were able to see the lower lobe bronchus. Utilizing sharp and blunt dissection, OPERATIVE REPORT [id number] LEWIS SIMS lymph nodes at level 10 were removed. The left inferior pulmonary vein was then divided with an endovascular TOSHIA stapler. We were then able to dissect the pulmonary artery away from the bronchus. The bronchus was divided with an Endo-TOSHIA stapler. After testing the position of the stapler, the upper lobe inflated, the lower lobe did not. The bronchus was divided. Attention was then turned toward the pulmonary artery and the pulmonary arteries were surrounded with vessel loops and divided. There was one main trunk to the lower lobe and an upper branch of the pulmonary artery to the superior segment of the lower lobe. The anterior fissure was then completed and utilizing Harmonic scalpel, the adhesions between the upper lobe and lower lobe were divided. The remainder of the fissure was then divided with an Endo-TOSHIA stapler. Utilizing a large heavyweight EndoCatch, the specimen was removed, examined and the lesion palpable in the lower lobe. This was sent to pathology. Dissection of the level 5, 6, AP window did not demonstrate any lymph nodes to be sampled. Attention was then turned around the main stem bronchus and dissection toward level 7 demonstrated no lymph nodes around the inferior main stem bronchus. The chest was then irrigated with copious amounts of antibiotic solution and normal saline. Hemostasis was assured. A #32 chest tube was placed in the superior chest. A separate chest tube was placed in the lower left hemithorax. The chest was again irrigated. Instrument count and sponge counts were correct times 2. The ports were removed and the wounds closed in layers utilizing 2-0 Vicryl on deep subcutaneous tissue and 3-0 Vicryl on superficial subcutaneous tissues. Skin approximated with 5-0 subcuticular Monocryl. Sterile dressings were applied. The patient tolerated the procedure well and was transferred to CV ICU in satisfactory condition. TRANSINT:[id number] Voice Confirmation ID: [id number] DOCUMENT ID: [id number] JOSE MIGUEL ESPARZA MD at 1102 CC: [id number] DICTATION DATE: 03/29/17 1224 CLERICAL STOCK INSPECTOR: 03/29/17 [address] [facility] [address] [facility]
[~2017-03-29 05:00] MED LIST changes: -HYDROCODONE-APA1 TAB PO
[2017-03-30] VITALS (26 sets, daily range): BP systolic 115–154; BP diastolic 46–75; Ht 185.4 cm; Wt 80.6 kg
[2017-03-30 06:07] LABS: HEMATOCRIT 33.5 % (42.0-54.0); HEMOGLOBIN 10.8 g/dL (13.5-17.5); MCHC 32.2 g/dL (31.0-37.0); MCV 86.8 fL (80.0-100.0); MEAN PLATELET VOLUME 9.5 fL (7.4-10.4); RBC 3.86 10x6/uL (4.20-6.10); RDW 14.1 % (11.5-14.5); WBC 10.9 10x3/uL (4.8-10.8)
[2017-03-30 06:23] LABS: ANION GAP 16.8 mmol/L (8-16); BILIRUBIN - TOTAL 0.48 mg/dL (0.2-1.3); CALCIUM 7.8 mg/dL (8.5-10.1); CARBON DIOXIDE 22.2 mmol/L (21.0-32.0); CREATININE - SERUM 1.4 mg/dL (0.6-1.3); PROTEIN - SERUM 5.9 g/dL (6.4-8.2)
[2017-03-31] VITALS (24 sets, daily range): BP systolic 113–165; BP diastolic 50–78
[2017-03-31 06:17] LABS: HEMATOCRIT 33.5 % (42.0-54.0); HEMOGLOBIN 10.9 g/dL (13.5-17.5); MCH 28.2 pg (26.0-34.0); MCHC 32.5 g/dL (31.0-37.0); MCV 86.6 fL (80.0-100.0); MEAN PLATELET VOLUME 9.7 fL (7.4-10.4); RBC 3.87 10x6/uL (4.20-6.10)
[2017-03-31 06:20] LABS: WBC 16.6 10x3/uL (4.8-10.8)
[2017-03-31 06:34] LABS: ALBUMIN 2.9 g/dL (3.4-5.0); BILIRUBIN - TOTAL 0.46 mg/dL (0.2-1.3); CALCIUM 8.4 mg/dL (8.5-10.1); CREATININE - SERUM 1.3 mg/dL (0.6-1.3); PROTEIN - SERUM 6.1 g/dL (6.4-8.2)
[2017-04-01] VITALS (25 sets, daily range): BP systolic 113–164; BP diastolic 49–79
[2017-04-01 06:36] LABS: HEMATOCRIT 32.2 % (42.0-54.0); HEMOGLOBIN 10.4 g/dL (13.5-17.5); MCHC 32.3 g/dL (31.0-37.0); MCV 86.6 fL (80.0-100.0); MEAN PLATELET VOLUME 9.6 fL (7.4-10.4); RBC 3.72 10x6/uL (4.20-6.10); RDW 14.1 % (11.5-14.5); WBC 16.2 10x3/uL (4.8-10.8)
[2017-04-01 07:33] LABS: ALBUMIN 2.7 g/dL (3.4-5.0); ANION GAP 8.9 mmol/L (8-16); BILIRUBIN - TOTAL 0.3 mg/dL (0.2-1.3); CALCIUM 8.2 mg/dL (8.5-10.1); CARBON DIOXIDE 28.7 mmol/L (21.0-32.0); CREATININE - SERUM 1.2 mg/dL (0.6-1.3); POTASSIUM - SERUM 3.6 mmol/L (3.5-5.1)
[2017-04-02] VITALS (10 sets, daily range): BP systolic 134–158; BP diastolic 53–81
[2017-04-02] MEDS ORDERED: HYDROCODONE-APA1 TAB PO (08:27)
== END 2017-04-02 11:23 | disposition home or self-care (01) | DRG 165 ==
LOC: D.SDCHOLD 05:00 → D.CVICU 05:00 → D.SDCHOLD 07:30 → D.CVICU 11:59
PROVIDERS: Internal Medicine Cardiovascular Disease
PROC: 0BTJ4ZZ Resection of Left Lower Lung Lobe, Percutaneous Endoscopic Approach (ICD-10-PCS; 2017-03-29)
PROC: 0BJ08ZZ Inspection of Tracheobronchial Tree, Via Natural or Artificial Opening Endoscopic (ICD-10-PCS; 2017-03-29)
PROC: 07B74ZZ Excision of Thorax Lymphatic, Percutaneous Endoscopic Approach (ICD-10-PCS; principal; 2017-03-29 07:30)
DX: C34.32 Malignant neoplasm of lower lobe, left bronchus or lung (principal); E11.9 Type 2 diabetes mellitus without complications; I10 Essential (primary) hypertension; L98.491 Non-pressure chronic ulcer of skin of other sites limited to breakdown of skin

== ENCOUNTER 2017-04-18 12:30 | Inpatient (IN) | payer MEDICARE, BC ==
[~2017-04-18] VITALS: Ht 185.4 cm; Wt 77.5 kg
--- NOTE | ~2017-04-18 | OP ---
PATIENT NAME: LEWIS SIMS MEDICAL RECORD: [id number] :48 LOCATION:[facility]20 ADMISSION DATE:04/18/17 SURGEON: ZHEN ESPARZA MD DATE OF OPERATION: 04/19/2017 SURGEON: Zhen Esparza MD ANESTHESIA: General. ANESTHESIOLOGIST: Saw Ledezma MD OPERATION PERFORMED: Debridement of second degree epidermolysis. PREOPERATIVE DIAGNOSIS: Epidermolysis. POSTOPERATIVE DIAGNOSIS: Epidermolysis. INDICATION FOR OPERATION: Epidermolysis with eschar. FINDINGS AT OPERATION: Thin eschar overlying a partial thickness epidermolysis. There was a good bleeding base. ESTIMATED BLOOD LOSS: Less than 5 cc. DESCRIPTION OF PROCEDURE: After informed consent, adequate preoperative medication evaluation, the patient was brought to the operating room, placed on the table in the supine position. After induction of general anesthesia and application of appropriate monitoring devices, the patient was turned in a right lateral decubitus position, protecting the neurological structures and the pressure points. The back was prepped and draped in a sterile field, utilizing Betadine scrub, alcohol, and Betadine solution. The wound was then scrubbed with a scrub brush removing the loose tissue. The eschar was then removed. Utilizing sharp dissection, There was a good granulation base and bleeding sites throughout the wound. There was only second degree damage to the skin and the wound was irrigated. A cold lap was placed for hemostasis. Triple antibiotic ointment cream was placed. Then, Adaptic gauze with 4 x 4s. The patient was then turned in a supine position. The patient tolerated the procedure well and was transferred to recovery room in satisfactory condition. TRANSINT:[id number] Voice Confirmation ID: [id number] DOCUMENT ID: [id number] ZHEN ESPARZA MD at 0829 CC: [id number] DICTATION DATE: 04/19/17 0820 CURRICULUM SUPERVISOR: 04/19/17 1007 DIS IN 04/20/17 [id number] [place] [address]
--- NOTE | ~2017-04-18 | HP ---
PATIENT: LEWIS SIMS MEDICAL RECORD: [id number] ACCOUNT: [id number] LOCATION:D.MS [facility]20 : 49 ADMISSION DATE: 04/18/17 HISTORY AND PHYSICAL EXAMINATION LEWIS Saavedra (66yo, M) ID# [id number]. Date/Time04/18/2017 01:[id number] Dept.NP_[facility] ClinicProviderDIEGO ESPARZA MDInsuranceMed Primary: [place] ([place]) Insurance # : [id number] Referring Provider Name : YOSELIN COFFEY Employer Name : UNKNOWN Med Secondary: [employer] - [place] Insurance # : [id number] Referring Provider Name : YOSELIN COFFEY Employer Name : UNKNOWN Prescription: CMX - Member is eligible. Chief Complaint Followup: Abdominal aortic aneurysm without rupture Followup: Peripheral vascular disease Followup: Carcinoma of lung s/p EVS AAA 05/08/16 s/p LVATS, LLL resection 03/29/17 two weeks f/u w CXR Patient's Care Team Referring Provider (): YOSELIN COFFEY: [address] [place] [id number], , Patient's Pharmacies [facility] (ER[place]): [address] [facility] [id number], , Vitals BP:122/70 sitting L arm 04/18/2017 01:16 pmBP Cuff Size:adult 04/18/2017 01:16 pmHR:76,reg 04/18/2017 01:16 pmHt:6 ft 1 in 04/18/2017 01:02 pmWt:176 lbs Out of Range 04/18/2017 01:17 pmNotes:only complaint is the burn on his left shoulderblade 04/18/2017 01:17 pmBMI:23.2 04/18/2017 01:17 pmAllergies Reviewed Allergies NKDASome allergies listed in Document: #[id number] could not be added to this patient's chart. Please review this document and add these allergies to the patient's chart manually as needed.Medications Reviewed Medications Baby Aspirin 81 mg chewable tablet Chew 1 tablet(s) every day by oral route.03/21/16 enteredKat WilsonBD Insulin Syringe Ult-Fine II 1 mL 31 gauge x 5/16"06/13/16 filledCaremarkBD Insulin Syringe Ultra-Fine 1 mL 31 gauge x 15/64"01/10/17 filledCaremarkbetamethasone dipropionate 0.05 % cdrnzo17/28/17 filledCaremarkbetamethasone dipropionate 0.05 % topical cream11/29/16 filledCaremarkbuPROPion HCl SR 150 mg tablet,12 hr sustained-release Take 1 tablet(s) twice a day by oral route for 30 days.02/08/17 filledCaremarkclobetasol 0.05 % scalp pnurtygk15/23/17 filledCaremarkclopidogrel 75 mg tablet Take 1 tablet(s) every day by oral route.08/08/16 filledCaremarkfluticasone 50 mcg/actuation nasal spray,uvgvweceik85/28/17 filledCaremarkFluzone High-Dose [id number] (PF) 180 mcg/0.5 mL intramuscular axinegv10/12/17 filledCaremarkgabapentin 300 mg bdwyrmt22/21/17 filledCaremarkHumuLIN N NPH U-100 Insulin (isophane susp) 100 unit/mL subcutaneous Inject 6 unit(s) every day by subcutaneous route.07/06/16 filledCaremarkHYDROcodone 10 mg-acetaminophen 325 mg xmonfv61/30/18 HISTORY AND PHYSICAL [id number] LEWIS SIMS filledCaremarkHYDROcodone 5 mg-acetaminophen 325 mg kzrose46/25/17 filledCaremarkiron 65 mg tablet Take 1 tablet(s) every day by oral route.03/21/16 enteredKathy WilsonJanumet 50 mg-1,000 mg tablet Take 1 tablet(s) twice a day by oral route for 90 days.01/09/17 filledCaremarkKlor-Con M20 mEq tablet,extended fyhzupr29/09/17 filledCaremarkLantus Solostar U-100 Insulin 100 unit/mL (3 mL) subcutaneous pen01/17/17 filledCaremarklosartan 100 mg-hydrochlorothiazide 12.5 mg tablet Take 1 tablet(s) every day by oral route for 90 days.04/12/17 filledCaremarkmethylPREDNISolone 4 mg tablets in a dose pack07/26/16 filledCaremarkmetoprolol tartrate 25 mg tablet TAKE ONE TABLET BY MOUTH TWICE DAILY03/16/17 filledCaremarkmultivitamin tablet Take 1 tablet(s) every day by oral route.03/21/16 [facility] Wilsonniacin ER 500 mg capsule,extended release Take 1 capsule(s) twice a day by oral route.03/21/16 [facility] Wilsonniacin ER 500 mg tablet,extended release 24 hr02/01/17 filledCaremarknitroglycerin 0.4 mg sublingual /23/17 filledCaremarkOsmoPrep 1.5 gram (1.102-0.398) tablet Take 1 tablet(s) by oral route as directed.04/04/16 Junito Esparza, Kimeg 3350 240 gram-electrolytes 22.72 gram-6.72 g-5.84 g powdr for soln Take 240 mL by oral route as directed.05/03/16 filledCaremarkSuprep Bowel Prep Kit 17.5 gram-3.13 gram-1.6 gram oral gcklcafe61/26/17 filledCaremark Some medications listed in Documents: #[id number], #[id number] could not be added to this patient's chart. Please review these documents and add these medications to the patient's chart manually as needed. Vaccines Reviewed Vaccines Some vaccines listed in Documents: #[id number], #[id number], #[id number] could not be added to this patient's chart. Please review these documents and add these vaccines to the patient's chart manually as needed. Problems Reviewed Problems Carcinoma of lung - Onset: 03/14/2017 Peripheral vascular disease - Onset: 05/31/2016 Abdominal aortic aneurysm without rupture - Onset: 03/20/2016 Family History Reviewed Family History Father- Malignant neoplastic diseaseMother- Malignant tumor of breast - Alzheimer's disease - Diabetes mellitusBrother- Diabetes mellitusSocial History Reviewed Social History Cardiology Smoking Status: Former smoker (Notes: using "E-cigarettes") High blood pressure: Y Diabetes: Y Marital status: Surgical History Reviewed Surgical History Other - penile prosthesis Heart revascularize (tmr) Heart revascularize (tmr) Spinal disk surgery add-on Tonsillectomy HISTORY AND PHYSICAL [id number] LEWIS SIMS AAA Repair - 05/08/2016 - EVS Other - 04/09/2016 - PTCA stent Dr Wright Past Medical History Reviewed Past Medical History Chest Pain: Y Circulation Problems: Y Coronary Artery Disease: Y Diabetes: Y GERD: Y Heart Disease: Y High Blood Pressure: Y Documents for Discussion N/A Screening None recorded. HPI Fatigue Reported by patient. Severity: normal sleep patterns; normal exercise habits; normal activity; improving Timing: better Context: symptoms improve on weekends/vacation; no problems/stress at work or home Modifying Factors: no new stressors in life; taking vitamins Associated Symptoms: no drug/alcohol withdrawal; no depression; no anxiety; no sleep disturbances; no snoring; periods of not breathing (apnea) have not been observed; no recent change in weight Skin Lesion Reported by patient. Location: back Quality: painful Severity: moderate Duration: started 2 week(s) ago Onset/Timing: initial improvement, but still persistent Alleviating Factors: silvadene Associated Symptoms: no fever; no cold symptoms; no nausea; no vomiting; no diarrhea; no urinary symptoms; no skin flakes; no scabbing; no bruising; no draining; no lesions multiplying; no lesions spreading Left lower lobe resection for adenocarcinoma ROS ROS as noted in the HPI Physical Exam Patient is a 66-year-old male. Constitutional: General Appearance healthy-appearing and thin. Level of Distress NAD. Ambulation ambulating normally. Cardiovascular: Apical Impulse not displaced or no thrill. Heart Auscultation normal s1 and s2; no murmurs, rubs, or gallops; and RRR; chest incisions healing well. Arterial Pulses no abdominal aorta bruits, femoral bruits, or popliteal bruits and 2+ bilateral, carotid 2+ bilateral, femoral 2+ bilateral, popliteal 2+ bilateral, and dorsalis pedis 2+ bilateral. Edema no edema or varicosities. Lungs: Repiratory Effort no dyspnea. Percussion no hyperresonance or dullness or flatness. Auscultation no wheezing, rhonchi, or rales / crackles and breathing sounds normal, good air movement, and CTA except as noted. HISTORY AND PHYSICAL [id number] LEWIS SIMS Abdomen: Bowl Sounds normal. In spection and Palpation no tenderness, guarding, masses, or rebound tenderness and soft and non-distended. Liver non-tender and no hepatomegaly. Spleen non-tender and no splenomegaly. Hernia none palpable. Musculoskeletal System: Gait And Stance normal gait and stance. Digits and Nails normal nails and no cyanosis. Neurologic: Cranial Nerves grossly intact. Reflexes DTRs 2+ bilaterally throughout. Sensation grossly intact. Lymph Nodes: Lymph Nodes no cervical LAD, supraclavicular LAD, axillary LAD, or inguinal LAD. Eyes: Lids and Conjunctivae no discharge or pallor and non-injected. Pupils PERRLA. Cornea grossly intact. EOM EOMI. Lens clear. Sclerae non-icteric. Neck: Neck no masses, enlarged lymph nodes, or carotid bruits and supple and trachea midline. Thyroid no enlargement or nodules and non-tender. Skin: Inspection and Palpation no rash, lesions, ulcers, jaundice, or abnormal nevi; left scapula incision as well as the shaggy exudate but areas of granulation healing well. Assessment / Plan progressing well status post left lower lobe resection Patient has skin lesion over left scapula that is not healing well and would benefit from debridement 1. Peripheral vascular disease I73.9: Peripheral vascular disease, unspecified PERIPHERAL ARTERIAL DISEASE OF THE LEG: CARE INSTRUCTIONS 2. Abdominal aortic aneurysm without rupture I71.4: Abdominal aortic aneurysm, without rupture ABDOMINAL AORTIC ANEURYSM: CARE INSTRUCTIONS 3. Carcinoma of lung C34.32: Malignant neoplasm of lower lobe, left bronchus or lung Discussion Notes follow-up in Dr. Weems Admit for wound care and debridement scapula wound. I have discussed patient's disease process with them in detail as well as the alternative methods of treatment we disc ussed wound debridement and dressing change including the expected benefits and risks were discussed with bleeding infection stroke and as well as the imponderables he understands all the above and wished to proceed with the procedure. HISTORY AND PHYSICAL [id number] LEWIS SIMS EDWARD MD at 0829 CC: [id number] DICTATION DATE: 04/18/17 1310 OPERATOR CATALYST CONCENTRATION: FABIENNE 04/18/17 1440 DIS IN 04/20/17 [facility] [address] [place] [address]
[~2017-04-18 12:30] MED LIST changes: +HYDROCODONE-APA1 TAB PO
[2017-04-18 14:53] VITALS: BP 128/52; BMI 23.2
[2017-04-18 15:37] LABS: BASOPHILS 0.4 % (0-2); EOSINOPHILS 7.6 % (0-7); HEMATOCRIT 35.5 % (42.0-54.0); HEMOGLOBIN 11.5 g/dL (13.5-17.5); IMMATURE GRANULOCYTES 0.4 % (0-5); MCH 28.1 pg (26.0-34.0); MCHC 32.4 g/dL (31.0-37.0); MCV 86.8 fL (80.0-100.0); MEAN PLATELET VOLUME 9.2 fL (7.4-10.4); MONOCYTES 10.7 % (2-11); NEUTROPHILS 58.9 % (40-80); RBC 4.09 10x6/uL (4.20-6.10); RDW 13.2 % (11.5-14.5); WBC 9.6 10x3/uL (4.8-10.8)
[2017-04-18 15:41] LABS: PLATELET COUNT 324 10x3/uL (130-400)
[2017-04-18 15:54] LABS: ALBUMIN 3.5 g/dL (3.4-5.0); ANION GAP 11.1 mmol/L (8-16); BILIRUBIN - TOTAL 0.3 mg/dL (0.2-1.3); CALCIUM 8.8 mg/dL (8.5-10.1); CARBON DIOXIDE 30.5 mmol/L (21.0-32.0); CREATININE - SERUM 1.2 mg/dL (0.6-1.3); POTASSIUM - SERUM 4.6 mmol/L (3.5-5.1); PROTEIN - SERUM 6.7 g/dL (6.4-8.2)
[2017-04-18 16:07] VITALS: BP 128/78
[2017-04-18 17:08] LABS: APPEARANCE CLEAR (CLEAR); BILIRUBIN NEGATIVE (NEGATIVE); COLOR YELLOW (YELLOW); GLUCOSE 50 mg/dL (NEGATIVE); KETONE NEGATIVE (NEGATIVE); NITRITE NEGATIVE (NEGATIVE); PROTEIN NEGATIVE (NEGATIVE); SPECIFIC GRAVITY 1.015 (1.005-1.020); UROBILINOGEN NORMAL (NORMAL)
[2017-04-18 21:58] VITALS: BP 144/77
[2017-04-19 00:11] VITALS: BP 142/77
[2017-04-19 05:16] VITALS: BP 153/73
[2017-04-19 09:33] VITALS: BP 141/74
[2017-04-19 13:21] VITALS: Ht 185.4 cm; Wt 77.5 kg
[2017-04-19 18:40] VITALS: BP 159/80
[2017-04-19 20:00] VITALS: BP 158/76
[2017-04-20] VITALS: BP 133/60
[2017-04-20 04:00] VITALS: BP 159/73
[2017-04-20 08:10] VITALS: BP 141/67
[2017-04-20 11:31] VITALS: BP 148/79
== END 2017-04-20 14:00 | disposition home or self-care (01) | DRG 593 ==
LOC: D.RAD 12:30 → D.MS 14:27
PROVIDERS: Internal Medicine Cardiovascular Disease
PROC: 0HD6XZZ Extraction of Back Skin, External Approach (ICD-10-PCS; principal; 2017-04-19 07:30)
DX: L98.421 Non-pressure chronic ulcer of back limited to breakdown of skin (principal); C34.32 Malignant neoplasm of lower lobe, left bronchus or lung; E11.9 Type 2 diabetes mellitus without complications; K21.9 Gastro-esophageal reflux disease without esophagitis; I10 Essential (primary) hypertension; I71.4 Abdominal aortic aneurysm, without rupture; I73.9 Peripheral vascular disease, unspecified

== ENCOUNTER 2017-07-01 07:15 | Outpatient (CLI) | payer MEDICARE, BC ==
[~2017-07-01] VITALS: Ht 185.4 cm; Wt 78.6 kg
[2017-07-01 07:57] LABS: BASOPHILS 0.2 % (0-2); EOSINOPHILS 2.2 % (0-7); HEMATOCRIT 35.1 % (42.0-54.0); HEMOGLOBIN 11.3 g/dL (13.5-17.5); IMMATURE GRANULOCYTES 0.2 % (0-5); LYMPHOCYTES 27.4 % (15-50); MCH 27.6 pg (26.0-34.0); MCHC 32.2 g/dL (31.0-37.0); MCV 85.8 fL (80.0-100.0); MEAN PLATELET VOLUME 9.4 fL (7.4-10.4); MONOCYTES 10.5 % (2-11); NEUTROPHILS 59.5 % (40-80); RBC 4.09 10x6/uL (4.20-6.10); RDW 14.1 % (11.5-14.5); WBC 6.4 10x3/uL (4.8-10.8)
[2017-07-01 07:59] LABS: PLATELET COUNT 178 10x3/uL (130-400)
[2017-07-01 08:22] LABS: APTT 31.9 SECONDS (22.8-39.4); INR 0.99 (0.85-1.17); PROTIME 12.7 SECONDS (11.6-15.0)
[2017-07-01 08:23] VITALS: BP 144/72; Ht 185.4 cm; Wt 78.6 kg
[2017-07-01 08:23] LABS: ANION GAP 14.2 mmol/L (8-16); CALCIUM 8.8 mg/dL (8.5-10.1); CARBON DIOXIDE 26.4 mmol/L (21.0-32.0); CREATININE - SERUM 1.1 mg/dL (0.6-1.3); POTASSIUM - SERUM 3.6 mmol/L (3.5-5.1)
== END 2017-07-01 09:00 | disposition home or self-care (01) ==
LOC: D.SP 07:15
PROVIDERS: General Practice
DX: C34.32 Malignant neoplasm of lower lobe, left bronchus or lung (principal); I10 Essential (primary) hypertension; E10.9 Type 1 diabetes mellitus without complications; L98.499 Non-pressure chronic ulcer of skin of other sites with unspecified severity; K76.9 Liver disease, unspecified; Z01.812 Encounter for preprocedural laboratory examination; Z01.810 Encounter for preprocedural cardiovascular examination; Z01.811 Encounter for preprocedural respiratory examination; Z53.9 Procedure and treatment not carried out, unspecified reason

== ENCOUNTER 2017-07-02 06:59 | Outpatient (CLI) | payer MEDICARE, BC ==
[~2017-07-02] VITALS: Ht 185.4 cm; Wt 78.2 kg
[2017-07-02 07:35] VITALS: Ht 185.4 cm; Wt 78.2 kg
== END 2017-07-02 13:14 | disposition home or self-care (01) ==
LOC: D.OPS 06:59 → D.SP 06:59 → D.US 06:59 → D.SP 13:14
DX: C34.32 Malignant neoplasm of lower lobe, left bronchus or lung (principal); K76.9 Liver disease, unspecified; Z01.812 Encounter for preprocedural laboratory examination

== ENCOUNTER 2017-07-25 06:01 | Day surgery (SDC) | payer MEDICARE, BC ==
[~2017-07-25] VITALS: Ht 185.4 cm; Wt 76.2 kg
--- NOTE | ~2017-07-25 | OP ---
PATIENT NAME: LEWIS SIMS MEDICAL RECORD: [id number] :48 LOCATION:D.OPS ADMISSION DATE: SURGEON: DON SHAH MD DATE OF OPERATION: 07/25/2017 PREOPERATIVE DIAGNOSES: 1. Metastatic lung cancer. 2. Hypertension. 3. Diabetes mellitus. POSTOPERATIVE DIAGNOSES: 1. Metastatic lung cancer. 2. Hypertension. 3. Diabetes mellitus. PROCEDURE: 1. Right subclavian vein PowerPort placement. 2. Fluoroscopic interpretation. SURGEON: Don Shah MD SOIL FIELD TECHNICIAN: Beth Brown APRN REPORT OF OPERATION: The patient's right chest was prepped and draped in sterile fashion. A needle was used to cannulate the right subclavian vein. A guidewire was advanced with ease. Fluoro was used to note that the wire was in good position in the venous system. A skin incision was made on the right superolateral chest and a subcutaneous pouch was made over the pectoral fascia. The catheter was then tunneled between this pouch and the wire exit site. The port was sutured to the pectoral fascia using interrupted 2-0 Prolenes times 2. The catheter was cut with a beveled tip at 21 cm. The dilator trocar device was then placed over the wire and the wire and dilator were removed. The catheter tip was advanced through the trocar and the trocar was removed. Fluoro was used to note that the catheter tip resting in good position at the right atrial superior vena caval junction. The port aspirated nonpulsatile dark blood and flushed easily with heparinized saline. The subcutaneous tissues were reapproximated with interrupted 3-0 Vicryl and the skin incisions were closed with subcutaneous 5-0 Monocryl. COMPLICATIONS: None. CONDITION: Stable. ANESTHESIA: General endotracheal. BLOOD LOSS: Minimal. TRANSINT:[id number] Voice Confirmation ID: [id number] DOCUMENT ID: [id number] OPERATIVE REPORT [id number] BETHANYLASHELLLEWISDON TROY MD at 1031 CC: GAVIN FIELDS MD and YOSELIN COFFEY [id number] DICTATION DATE: 07/25/17 0844 ELIGIBILITY MANAGER: 07/25/[address] [facility] 07/25/17 [id number] [place] [address]
[2017-07-25 06:57] VITALS: BP 125/75; Ht 185.4 cm; Wt 76.2 kg
[2017-07-25 07:20] LABS: ANION GAP 12.9 mmol/L (8-16); CALCIUM 8.9 mg/dL (8.5-10.1); CARBON DIOXIDE 29.6 mmol/L (21.0-32.0); CREATININE - SERUM 1.2 mg/dL (0.6-1.3); POTASSIUM - SERUM 3.5 mmol/L (3.5-5.1)
[2017-07-25 07:38] LABS: APTT 29.8 SECONDS (22.8-39.4); PROTIME 12.8 SECONDS (11.6-15.0)
[2017-07-25 08:40] LABS: BASOPHILS 0.3 % (0-2); EOSINOPHILS 1.7 % (0-7); HEMATOCRIT 36.6 % (42.0-54.0); HEMOGLOBIN 11.9 g/dL (13.5-17.5); IMMATURE GRANULOCYTES 0.1 % (0-5); LYMPHOCYTES 29.7 % (15-50); MCH 27.7 pg (26.0-34.0); MCHC 32.5 g/dL (31.0-37.0); MCV 85.3 fL (80.0-100.0); MEAN PLATELET VOLUME 9.8 fL (7.4-10.4); MONOCYTES 11.2 % (2-11); PLATELET COUNT 221 10x3/uL (130-400); RBC 4.29 10x6/uL (4.20-6.10); RDW 13.9 % (11.5-14.5)
[2017-07-25] MEDS ORDERED: HYDROCODONE-APA1 TAB PO (08:43)
== END 2017-07-25 10:42 | disposition home or self-care (01) ==
LOC: D.OPS 06:01 → D.PAN 08:00 → D.OPS 08:00
PROVIDERS: Anesthesiology
DX: C34.90 Malignant neoplasm of unspecified part of unspecified bronchus or lung (principal); C79.9 Secondary malignant neoplasm of unspecified site; I10 Essential (primary) hypertension; E11.9 Type 2 diabetes mellitus without complications; Z01.812 Encounter for preprocedural laboratory examination

== ENCOUNTER 2017-10-14 10:25 | Outpatient (CLI) | payer MEDICARE, BC ==
[~2017-10-14] VITALS: Ht 185.4 cm; Wt 74.5 kg
[2017-10-14 11:16] VITALS: BP 136/87; Ht 185.4 cm; Wt 74.5 kg
== END 2017-10-14 17:25 | disposition home or self-care (01) ==
LOC: D.OPS 10:25
DX: D64.81 Anemia due to antineoplastic chemotherapy (principal); C34.32 Malignant neoplasm of lower lobe, left bronchus or lung; Z01.812 Encounter for preprocedural laboratory examination

== ENCOUNTER 2017-10-23 16:53 | Emergency (ER) | payer MEDICARE, BC ==
[~2017-10-23] VITALS: Ht 185.4 cm; Wt 68.6 kg
[2017-10-23 17:07] VITALS: Ht 185.4 cm; Wt 68.6 kg
[2017-10-23 17:36] LABS: BASOPHILS 0 % (0-2); EOSINOPHILS 0 % (0-7); HEMATOCRIT 32.3 % (42.0-54.0); HEMOGLOBIN 10.5 g/dL (13.5-17.5); IMMATURE GRANULOCYTES 0.2 % (0-5); MCH 29.2 pg (26.0-34.0); MCHC 32.5 g/dL (31.0-37.0); MEAN PLATELET VOLUME 9.9 fL (7.4-10.4); MONOCYTES 1.4 % (2-11); NEUTROPHILS 91.4 % (40-80); PLATELET COUNT 270 10x3/uL (130-400); RBC 3.59 10x6/uL (4.20-6.10); RDW 15.9 % (11.5-14.5); WBC 4.9 10x3/uL (4.8-10.8)
[2017-10-23 17:47] LABS: ANION GAP 14.3 mmol/L (8-16); BILIRUBIN - TOTAL 0.38 mg/dL (0.2-1.3); CALCIUM 7.9 mg/dL (8.5-10.1); CARBON DIOXIDE 26.4 mmol/L (21.0-32.0); CREATININE - SERUM 1.1 mg/dL (0.6-1.3); POTASSIUM - SERUM 4.7 mmol/L (3.5-5.1)
[2017-10-23 18:02] LABS: PROTEIN - SERUM 3.5 g/dL (6.4-8.2)
[2017-10-23 18:05] LABS: COLOR YELLOW (YELLOW)
[2017-10-23 18:06] LABS: APPEARANCE CLEAR (CLEAR); BILIRUBIN NEGATIVE (NEGATIVE); GLUCOSE 1000 mg/dL (NEGATIVE); KETONE NEGATIVE (NEGATIVE); NITRITE NEGATIVE (NEGATIVE); PROTEIN 2+ mg/dL (NEGATIVE); SPECIFIC GRAVITY 1.015 (1.005-1.020); UROBILINOGEN NORMAL (NORMAL)
[2017-10-23 18:07] LABS: AMORPHOUS SEDIMENT <1+ /lpf (NONE SEEN); RED CELLS - URINE OCC /hpf (0-5)
[2017-10-23 21:34] VITALS: BP 169/91
== END 2017-10-23 21:15 | disposition home or self-care (01) ==
LOC: D.ER 16:53
PROVIDERS: Family Medicine
DX: T45.1X5A Adverse effect of antineoplastic and immunosuppressive drugs, initial encounter (principal); Y92.89 Other specified places as the place of occurrence of the external cause; E11.65 Type 2 diabetes mellitus with hyperglycemia; I10 Essential (primary) hypertension; I25.10 Atherosclerotic heart disease of native coronary artery without angina pectoris; I73.9 Peripheral vascular disease, unspecified